=== PATIENT | female | born 1990 | race Caucasian/White ===

== ENCOUNTER 2023-02-17 14:06 | Outpatient (OUT) | payer OTHER, SELFPAY ==
--- NOTE | 2023-02-17 14:16 | US_ITS ---
[address] [address] Patient Name: LIBBY LAY MRN: [id number] date: 1990 Sex: F Assigned Patient Location: US Current Patient Location: Accession/Order Number: [id number] Exam Date: 02/17/2023 14:18 Report Date: 02/17/2023 16:08 At the request of: DLAI STARK Procedure: US OB cervical length EXAMINATION: US OB anatomy, US OB cervical length HISTORY: 20 Weeks Gestation Of Z3A.20 COMPARISON: No relevant comparison available. TECHNIQUE: Transabdominal sonographic examination was performed for obstetrical and evaluation. FINDINGS: Number: 1 Heart Rate: 142.1 bpm H.B. /min Amniotic Fluid Volume: Subjectively normal Placental Location: Cephalic with lower margin 0.3 cm from os. Cervix Length: 4.7 cm, closed. ANATOMY: Normal Structures -cerebellum, choroid plexus, cisterna magna, lateral cerebral ventricles, orbits, midline falx, four-chamber heart, RVOT, LVOT, stomach, kidneys, bladder, umbilical cord insertion into abdomen, three-vessel cord, cervical spine, thoracic spine, lumbar spine, sacral spine, right upper extremity, left upper extremity, right lower extremity, left lower extremity. SUBOPTIMALLY SEEN: Hard palate. ABNORMALITIES: None BIOMETRY: BPD: 5.1 cm 21 weeks 3 days HC: 18.5 cm 20 weeks 6 days AC: 14.8 cm 20 weeks 0 days FL: 3.3 cm 20 weeks 3 days EFW:348.3 grams; FL/AC: 22.6 FL/BPD: 65.6 HC/AC: 1.3 GESTATIONAL AGE: Age by EDC: 20 weeks 1 days JERRY by EDC: 07/06/2023 Age by current US: 20 weeks 5 days JERRY by current US: 07/02/2023 US/US OB cervical length IMPRESSION: 1. Single live intrauterine with growth detailed above. 2. Suboptimal visualization of the hard palate; possible cleft lip. Follow-up recommended. Electronically authenticated by: CHRISTIANO PADILLA Date: 02/17/2023 16:08
--- NOTE | 2023-02-17 14:16 | US_ITS ---
[address] [address] Patient Name: LIBBY LAY MRN: [id number] date: 1990 Sex: F Assigned Patient Location: US Current Patient Location: US Accession/Order Number: [id number] Exam Date: 02/17/2023 14:18 Report Date: 02/17/2023 16:08 At the request of: DALI STARK Procedure: US OB anatomy EXAMINATION: US OB anatomy, US OB cervical length HISTORY: 20 Weeks Gestation Of Z3A.20 COMPARISON: No relevant comparison available. TECHNIQUE: Transabdominal sonographic examination was performed for obstetrical and evaluation. FINDINGS: Number: 1 Heart Rate: 142.1 bpm H.B. /min Amniotic Fluid Volume: Subjectively normal Placental Location: Cephalic with lower margin 0.3 cm from os. Cervix Length: 4.7 cm, closed. ANATOMY: Normal Structures -cerebellum, choroid plexus, cisterna magna, lateral cerebral ventricles, orbits, midline falx, four-chamber heart, RVOT, LVOT, stomach, kidneys, bladder, umbilical cord insertion into abdomen, three-vessel cord, cervical spine, thoracic spine, lumbar spine, sacral spine, right upper extremity, left upper extremity, right lower extremity, left lower extremity. SUBOPTIMALLY SEEN: Hard palate. ABNORMALITIES: None BIOMETRY: BPD: 5.1 cm 21 weeks 3 days HC: 18.5 cm 20 weeks 6 days AC: 14.8 cm 20 weeks 0 days FL: 3.3 cm 20 weeks 3 days EFW:348.3 grams; FL/AC: 22.6 FL/BPD: 65.6 HC/AC: 1.3 GESTATIONAL AGE: Age by EDC: 20 weeks 1 days JERRY by EDC: 07/06/2023 Age by current US: 20 weeks 5 days JERRY by current US: 07/02/2023 US/US OB anatomy IMPRESSION: 1. Single live intrauterine with growth detailed above. 2. Suboptimal visualization of the hard palate; possible cleft lip. Follow-up recommended. Electronically authenticated by: CHRISTIANO PAIDLLA Date: 02/17/2023 16:08
== END 2023-02-17 14:07 | disposition home or self-care (01) ==
LOC: US 14:09
PROVIDERS: PCP Family Medicine; Visit Provider Midwife
DX: Z34.92 Encounter for supervision of normal pregnancy, unspecified, second trimester (principal)
CPT/HCPCS: 76805; 76817

== ENCOUNTER 2023-04-26 07:37 | Outpatient (OUT) | payer OTHER, SELFPAY | END 2023-04-26 07:38 | disposition home or self-care (01) | LOC: LAB 07:37 | PROVIDERS: PCP Family Medicine; Visit Provider Midwife | DX: O26.899 Other specified pregnancy related conditions, unspecified trimester (principal); Z67.91 Unspecified blood type, Rh negative | CPT/HCPCS: 36415; 86850; 86900; 86901 ==

== ENCOUNTER 2023-04-27 07:28 | Outpatient (RCR) | payer OTHER, SELFPAY ==
[2023-04-27] MEDS: RHO(D) IMMUNE GLOBULIN 1,500 UNIT SYRINGE 1500 UNIT IM (13:13)
[2023-04-27 13:56] VITALS: BP 136/81; PULSE 110; RESP 16; TEMP 37
--- NOTE | 2023-04-27 14:11 | PC.NURSE ---
1245: Pt. to [facility] amb. for injection. Seated in recliner. Blood type verified. Relays receiving past injections of Rhogam with no reaction or adverse side effects. Denies questions regarding med. Medicated with Rhophylac IM as ordered. Pt. tolerates with min. c/o discomfort. No bleeding to site. Bandaid applied prophylactically. 1315: Pt. d/c'd amb. to home. No bleeding observed at injection site.
== END 2023-04-28 23:59 | disposition home or self-care (01) ==
LOC: INF 07:28
PROVIDERS: PCP Family Medicine; Visit Provider Midwife
DX: O26.893 Other specified pregnancy related conditions, third trimester (principal); Z67.91 Unspecified blood type, Rh negative
CPT/HCPCS: 96372; J2790

== ENCOUNTER 2023-06-30 05:34 | Inpatient (IN) | payer OTHER, SELFPAY ==
[2023-06-30] VITALS (28 sets, daily range): BP systolic 107–136; BP diastolic 60–98; PULSE 68–95; RESP 10–27; TEMP 35.9–36.8; O2SAT 94–98
--- OUTSIDE RECORDS SUMMARY | 2023-06-30 05:38 | XMS_ITS | CCD ---
Author Name Unknown Address [address] [facility] [id number] [place] [address] Organization [facility] Care Team Providers Care Senior Budget Analyst Name Role Phone Unavailable Primary Care Provider Unavaildonaldo Hernandez MD, Rashida Koehler Primary Care Provider RAHUL CARRIZALES Admitting Unavailable HEDGERAHUL Gonzalez Attending Unavailable RAHUL CARRIZALES Admitting Unavailable RAHUL CARRIZALES Attending Unavailable RASHIDA HERNANDEZ Primary Care Unavailable FLORO, DALI L Attending Unavailable FLORO, DALI L Attending Unavailable FLORO, DALI L Referring Unavailable FLORO, DALI L Attending Unavailable FLORO, DALI L Referring Unavailable FLORO, DALI L Attending Unavailable FLORO, DALI L Attending Unavailable FLORO, DALI L Attending Unavailable FLORO, DALI L Referring Unavailable FLORO, DALI L Attending Unavailable FLORO, DALI L Attending Unavailable FLORO, DALI L Referring Unavailable FLORO, DALI L Referring Unavailable FLORO, DALI L Attending Unavailable FLORO, DALI L Referring Unavailable FLORO, DALI L Referring Unavailable FLORO, DALI L Attending Unavailable Allergies Allergy Classification Reported Allergen(s) Allergy Type Date of Onset Reaction(s) Facility (1 source) Amoxicillin Drug Allergy 11-20-2021 [facility] Medications Current Medications Medication Drug Class(es) Dates Sig (Normalized) Sig (Original) acetaminophen 500 mg oral tablet (1 source) Start: 11-20-2021 acetaminophen (TYLENOL) tablet 1,000 mg calcium chloride 0.0014 meq/ml / potassium chloride 0.004 meq/ml / sodium chloride 0.103 meq/ml / sodium lactate 0.028 meq/ml injectable solution (2 sources) Start: 11-20-2021 End: 11-20-2021 lactated ringers infusion 1 ml carboprost 0.25 mg/ml injection (1 source) Prostaglandin Analog Start: 11-20-2021 carboprost (HEMABATE) injection 250 mcg 1 ml diphenhydrAMINE hydrochloride 50 mg/ml cartridge (1 source) Histamine-1 Receptor Antagonist Start: 11-20-2021 diphenhydrAMINE (BENADRYL) injection 25 mg docusate sodium 100 mg oral capsule (2 sources) Start: 11-23-2021 take 1 capsule by mouth twice daily docusate sodium (COLACE) 100 MG capsule Take 1 capsule by mouth 2 times daily 60 capsule 2 11/23/2021 Active Start: 11-20-2021 docusate sodiu m (COLACE) capsule 100 mg docusate sodium 50 mg / sennosides, group home 8.6 mg oral tablet (1 source) Start: 11-20-2021 sennosides-docusate sodium (SENOKOT-S) 8.6-50 MG tablet 1 tablet 0.4 ml enoxaparin sodium 100 mg/ml prefilled syringe (1 source) Low Molecular Weight Heparin Start: 11-20-2021 enoxaparin (LOVENOX) injection 40 mg ibuprofen 800 mg oral tablet (2 sources) Nonsteroidal Anti-inflammatory Drug Start: 11-23-2021 take 1 tablet by mouth every eight hours ibuprofen (ADVIL;MOTRIN) 800 MG tablet Take 1 tablet by mouth every 8 hours 120 tablet 3 11/23/2021 Active Start: 11-21-2021 ibuprofen (ADV IL;MOTRIN) tablet 800 mg lanolin 1000 mg/ml topical cream (1 source) Start: 11-20-2021 lansinoh lanol in ointment 1 ml methylergonovine maleate 0.2 mg/ml injection (1 source) Ergot Derivative Start: 11-20-2021 methylergonov ine (METHERGINE) injection 200 mcg miSOPROStol 0.1 mg oral tablet (1 source) Prostaglandin E1 Analog Start: 11-20-2021 miSOPROStol (CYTOTEC ) tablet 800 mcg 1 ml nalbuphine hydrochloride 10 mg/ml injection (1 source) Opioid Agonist/Antagonist Start: 11-20-2021 nalbuphine (NUBAIN) injection 10 mg 1 ml naloxone hydrochloride 0.4 mg/ml injection (1 source) Opioid Antagonist Start: 11-20-2021 naloxone (NA RCAN) injection 0.4 mg ondansetron 4 mg disintegrating oral tablet (2 sources) Serotonin-3 Receptor Antagonist Start: 11-22-2021 ondansetron (ZOFRAN-ODT) disintegrating tablet 4 mg Start: 11-20-2021 End: 11-22-2021 ondansetron (ZOFRAN) injecti on 4 mg oxyCODONE hydrochloride 10 mg oral tablet (3 sources) Opioid Agonist Start: 11-23-2021 End: 11-28-2021 take 1 tablet by mouth every six hours as needed for pain oxyCODONE (OXY-IR) 10 MG immediate release tablet Indications: Delivery by section for breech presentation Take 1 tablet by mouth every 6 hours as needed for Pain for up to 5 days. 20 tablet 0 11/23/2021 11/28/2021 Active Start: 11-20-2021 oxyCODONE (HECTOR ICODONE) immediate release tablet 10 mg Start: 11-20-2021 oxyCODONE (HECTOR ICODONE) immediate release tablet 5 mg oxytocin (PITOCIN) 30 units in 500 mL infusion (1 source) Start: 11-20-2021 oxytocin (JEREMIAH MELISSA) 30 units in 500 mL infusion vitamin 27-1 MG tab let 1 tablet (1 source) Start: 11-20-2021 vitam in 27-1 MG tablet 1 tablet simethicone 80 mg chewable tablet (1 source) Start: 11-20-2021 simethicone (M YLICON) chewable tablet 80 mg 5 ml sodium chloride 9 mg/ml injection (3 sources) Start: 11-20-2021 0.9 % sodium c hloride infusion Start: 11-20-2021 sodium chlorid e flush 0.9 % injection 5-40 mL Completed/Discontinued Medications Medication Drug Class(es) Dates Sig (Normalized) Sig (Original) citric acid 66.8 mg/ml / sodium citrate 100 mg/ml oral solution (1 source) Calculi Dissolution Agent, Anti-coagulant Start: 11-20-2021 End: 11-20-2021 citric acid-sodium citrate (BICITRA) solution 30 mL famotidine (PEPCID) 20 mg in sodium chloride (PF) 10 mL injection (1 source) Start: 11-20-2021 End: 11-20-2021 famotidine (PEPCID) 20 mg in sodium chloride (PF) 10 mL injection ferrous gluconate 324 mg oral tablet (1 source) End: 11-20-2021 take 1 tablet by mouth once daily at breakfast ferrous gluconate (FERGON) 324 (38 Fe) MG tablet Take 324 mg by mouth daily (with breakfast) 0 11/20/2021 Discontinued 1 ml ketorolac tromethamine 30 mg/ml cartridge (1 source) Nonsteroidal Anti-inflammatory Drug, Cyclooxygenase Inhibitor Start: 11-20-2021 End: 11-21-2021 ketorolac (TORADOL) injection 30 mg 2 ml metoclopramide 5 mg/ml prefilled syringe (1 source) Dopamine-2 Receptor Antagonist Start: 11-20-2021 End: 11-20-2021 metoclopramide (REGLAN) injection 10 mg oxytocin (PITOCIN) 30 units in 500 mL infusion Override Pull (1 source) Start: 11-20-2021 End: 11-20-2021 oxytocin (PITOCIN) 30 units in 500 mL infusion Override Pull MV-Min-Fe Fum-FA-DHA ( 1 PO) (1 source) End: 11-20-2021 MV-Min-Fe Fum-FA-DHA ( 1 PO) Take 1 tablet by mouth 0 11/20/2021 Discontinued Problems Problem Classification Problem Date Documented Da te Episodic/Chronic Malposition; malpresentation (2 sources) Delivery by section for breech presentation; Translations: [Maternal care for breech presentation, not applicable or unspecified] Onset: 11-20-2021 Episodic Other and delivery including normal (2 sources) Third trimester ; Translations: [Encounter for supervision of normal , unspecified, third trimester] Onset: 11-20-2021 Episodic Unclassified (1 source) No additional problems on file Results Test Name Value Interpretation Reference Range Facility US BIOPHYSICAL PROFILE WO NON STRESS TESTINGon 06-23-2023 US BIOPHYSICAL PROFILE WO NON STRESS TESTING EXAMINATION: BIOPHYSICAL PROFILE CLINICAL HISTORY: COMPARISONS: None available. FINDINGS: Transabdominal ultrasound of the gravid uterus was performed for 30 minutes or less for evaluation of biophysical profile with scoring as follows: 2 out of 2 for breathing 2 out of 2 for movement. 2 out of 2 for tone. 2 out of 2 for amniotic fluid volume. heart rate of 134 beats per minute is documented. Amniotic fluid index calculated at 13.70 cm, 53.6%. IMPRESSION: BIOPHYSICAL PROFILE WITH A SCORE OF 8 OUT OF 8. CLINICAL CORRELATION RECOMMENDED. Normal Not Available US BIOPHYSICAL PROFILE WO NON STRESS TESTINGon 06-20-2023 US BIOPHYSICAL PROFILE WO NON STRESS TESTING This is a summary report. The complete report is available in the patient's medical record. If you cannot access the medical record, please contact the sending organization for a detailed fax or copy. US BIOPHYSICAL PROFILE WO NON STRESS TESTING : 06/20/2023 3:58 PM CLINICAL HISTORY: Abnormal stress COMPARISON: June 16, 2023 Transabdominal ultrasound of the gravid uterus was performed for an ultrasound biophysical profile. FINDINGS: A single live intrauterine is present. heart rate measures 126 bpm. The amniotic fluid index measures 13.59 cm measured in 4 quadrants. Biophysical profile was performed with scoring as follows: 2/2 for breathing. 2/2 for movement. 2/2 for tone. 2/2 for amniotic fluid volume. IMPRESSION: BIOPHYSICAL PROFILE WITH A SCORE OF 8/8. CORRELATION WITH NON-STRESS TEST IS RECOMMENDED. ELECTRONICALLY SIGNED BY: Gray David DO Normal Not Available US OB FOLLOW UP TRANSABDOMIN AL APPROACHon 06-16-2023 US OB FOLLOW UP TRANSABDOMINAL APPROACH HISTORY: Gestational diabetes COMPARISON: 06/09/2023 TECHNIQUE: Sonography of the pelvis was performed by transabdominal technique. Images were obtained and stored in a permanent archive. RESULT: Gestation: Single present. Position: Cephalic Placenta: Location: Posterior/fundal Grade: I Previa: absent Cervix: Closed measuring 3.2 cm in length. Cardiac activity: 141 bpm BPD: 9.2 cm HC: 33.6 cm AC: 33.0 cm FL: 7.3 cm Amniotic fluid: 13.7 cm, 51.6 percentile Estimated weight (EFW): 3235 g (7 pounds 2 ounces), 67th percentile Estimated gestational age: 37 weeks 4 days estimated gestational age by composite. Anatomy: No gross anomalies in the visualized anatomy. IMPRESSION: Single, live intrauterine with estimated 37 weeks 4 days gestational age. ELECTRONICALLY SIGNED BY: Stephon Juarez MD Normal Not Available US OB FOLLOW UP TRANSABDOMIN AL APPROACHon 06-09-2023 OB FOLLOW UP TRANSABDOMINAL APPROACH This is a summary report. The complete report is available in the patient's medical record. If you cannot access the medical record, please contact the sending organization for a detailed fax or copy. OB FOLLOW UP TRANSABDOMINAL APPROACH: 06/09/2023 9:42 AM CLINICAL HISTORY: Ultrasound. Growth only COMPARISON: June 03, 2023 Transabdominal ultrasound of the gravid uterus was performed. FINDINGS: A single live intrauterine is noted in cephalic position. cardiac activity measures approximately 156 beats per minute. The cervix measures approximately 3.63 cm in longitudinal length. A grade 1-appearing placenta is posterior without evidence of an abnormal subplacental collection or previa. The amniotic fluid volume appears within normal limits for gestation. The ANTWON measures 14.45 cm. The following measurements were obtained: BPD 8.96 cm, HC 32.38 cm, AC 32.64 cm, FL 8.96 cm, which corresponds to an aggregate gestational age of 36 weeks 3 days. Estimated weight is 2957 g. This corresponds to 61.8% by LMP. There is no free fluid noted in the maternal pelvis. Neither maternal ovary is identified. IMPRESSION: SINGLE LIVE INTRAUTERINE CORRESPONDING TO APPROXIMATELY 36 WEEKS 3 DAYS WITH THAT EXPECTED DUE DATE OF JULY 04, 2023. NO GROSS ABNORMALITIES IDENTIFIED, WITHIN THE LIMITS OF THE STUDY. ELECTRONICALLY SIGNED BY: Gray David, DO Normal Not Available OB FOLLOW UP TRANSABDOMIN AL APPROACHon 06-03-2023 OB FOLLOW UP TRANSABDOMINAL APPROACH This is a summary report. The complete report is available in the patient's medical record. If you cannot access the medical record, please contact the sending organization for a detailed fax or copy. OB FOLLOW UP TRANSABDOMINAL APPROACH: 06/03/2023 2:35 PM CLINICAL HISTORY: Ultrasound. COMPARISON: May 19, 2023 Transabdominal ultrasound of the gravid uterus was performed. FINDINGS: A single live intrauterine is noted in cephalic position. cardiac activity measures approximately 158 beats per minute. The cervix measures approximately 4.39 cm cm in longitudinal length. A grade 1-appearing placenta is posterior without evidence of an abnormal subplacental collection or previa. The amniotic fluid volume appears within normal limits for gestation. The ANTWON measures 13.21 cm The following measurements were obtained: BPD 8.75 cm, HC 31.54 cm, AC 31.49 cm, FL 6.88 cm, which corresponds to an aggregate gestational age of 35 weeks 3 days. Estimated weight is 2664 g which places this fetus in the 50.8 percentile. There is no free fluid noted in the maternal pelvis. Neither maternal ovary is identified. IMPRESSION: SINGLE LIVE INTRAUTERINE CORRESPONDING TO APPROXIMATELY 35 WEEKS 3 DAYS WITH AN EXPECTED DUE DATE OF JULY 05, 2023.. NO GROSS ABNORMALITIES IDENTIFIED, WITHIN THE LIMITS OF THE STUDY. ELECTRONICALLY SIGNED BY: Gray David DO Normal Not Available US OB FOLLOW UP TRANSABDOMIN AL APPROACHon 05-19-2023 US OB FOLLOW UP TRANSABDOMINAL APPROACH This is a summary report. The complete report is available in the patient's medical record. If you cannot access the medical record, please contact the sending organization for a detailed fax or copy. US OB FOLLOW UP TRANSABDOMINAL APPROACH: 05/19/2023 9:31 AM CLINICAL HISTORY: Ultrasound. COMPARISON: April 27, 2023 Transabdominal ultrasound of the gravid uterus was performed. FINDINGS: A single live intrauterine is noted in cephalic position. cardiac activity measures approximately 158 beats per minute. The cervix measures approximately 3.2 t cm in longitudinal length. The placenta is posterior without evidence of an abnormal subplacental collection or previa. The amniotic fluid volume appears within normal limits for gestation. It measures 15.09 cm. The following measurements were obtained: BPD 8.31 cm, HC 30.21 cm, AC 29.44 cm, FL 6.42 cm, which corresponds to an aggregate gestational age of 33 weeks 3 days. Estimated weight is 2177 g. This [address] this fetus in the 47.6 percentile.. There is no free fluid noted in the maternal pelvis. Neither maternal ovary is identified. IMPRESSION: SINGLE LIVE INTRAUTERINE CORRESPONDING TO APPROXIMATELY 33 WEEKS 3 DAYS WITH AN EXPECTED DUE DATE OF JULY 04, 2023. NO GROSS ABNORMALITIES IDENTIFIED, WITHIN THE LIMITS OF THE STUDY. ELECTRONICALLY SIGNED BY: Gray David DO Normal Not Available US OB FOLLOW UP TRANSABDOMIN AL APPROACHon 04-27-2023 US OB FOLLOW UP TRANSABDOMINAL APPROACH FINDINGS: Single live intrauterine . heart rate 141 bpm. somatic activity identified. Cephalic position. Grade 0 posterior placenta. ANTWON 13.22 cm. Cervical length not visualized. Estimated sonographic gestational age 30 weeks, 0 days. Gestational age by dates, 30 weeks, 0 days. Estimated sonographic date of delivery July 06, 2023. Estimated weight 1503 g (39.4%, by LMP percentile. BPD 7.73 cm. HC 27.61 cm. FL 5.71 cm. AC 25.81 cm. IMPRESSION: Impression: Single live intrauterine with estimated sonographic gestational age 30 weeks, 0 days. Estimated weight 1503 g. ELECTRONICALLY SIGNED BY: Yan Noel MD Normal Not Available Hemoglobinon 11-21-2021 Hemoglobin (Bld) [Mass/Vol] 10.8 g/dL Low 11.9-15.[address] [facility] Comment on above: Performed By: #### H GB #### [facility] [address] [place] [address] Talent Engineer: Juan Luis Cherry MD Hemoglobin (Bld) [Mass/Vol] 10.8 g/dL Low 11.9 - 15.1 g/dL [facility] Interpretation and review of laboratory results Abnormal [facility] DRUG SCREEN MULTI URINEon Amphetamine Screen, Ur Negative NEGATIVE [facility] Barbiturate Screen, Ur Negative NEGATIVE [facility] Benzodiazepine Screen, Urine Negative NEGATIVE [facility] Buprenorphine Urine Negative NEGATIVE [facility] Cannabinoid Scrn, Ur Negative NEGATIVE [facility] Cocaine Metabolite, Urine Negative NEGATIVE [facility] Methadone Screen, Urine Negative NEGATIVE [facility] Methamphetamine, Urine Negative NEGATIVE [facility] Opiates, Urine Negative NEGATIVE [facility] Oxycodone Screen, Ur Negative NEGATIVE [facility] Phencyclidine, Urine Negative NEGATIVE [facility] Propoxyphene, Urine Negative NEGATIVE [facility] Tricyclic Antidepressants, Urine Negative NEGATIVE [facility] Comment on above: Drug screen results are to be used for medical purposes only. All positive results are unconfirmed. Testing for employment or legal uses should be sent to a reference laboratory for confirmation. [facility] Drug Scr, Abuse, Uron 2021 Amphetamine(s),Ur Negative Normal NEG [facility] Comment on above: Performed By: #### D AU #### [facility] [address] [place], [place] [id number] Talent Engineer: Juan Luis Cherry MD Barbiturate(s),Ur Negative Normal NEG [facility] Comment on above: Performed By: #### D AU #### [facility] [address] [place], [place] [id number] Talent Engineer: Juan Luis Cherry MD Benzodiazepine(s) Negative Normal NEG [facility] Comment on above: Performed By: #### D AU #### [facility] [address] [place], [place] [id number] Talent Engineer: Juan Luis Cherry MD Buprenorphrine, Ur Negative Normal [facility] Comment on above: Performed By: #### D AU #### [facility] [address] [place], [place] [id number] Talent Engineer: Juan Luis Cherry MD Cannabinoid(s),Ur Negative Normal NEG [facility] Comment on above: Performed By: #### D AU #### [address] [place], [place] [id number] Talent Engineer: Juan Luis Cherry MD Cocaine Metabolite Negative Normal [facility] Comment on above: Performed By: #### D AU #### [facility] [address] [place], [place] [id number] Talent Engineer: Juan Luis Cherry MD Methadone Ql (U) Negative Normal NEG [facility] Comment on above: Performed By: #### D AU #### [facility] [address] [place], [place] [id number] Talent Engineer: Juan Luis Cherry MD Methamphetamine, Ur Negative Normal [facility] Comment on above: Performed By: #### D AU #### [facility] [address] [place] [address] Talent Engineer: Juan Luis Cherry MD Opiate(s), Ur Negative Normal NEG [facility] Comment on above: Performed By: #### D AU #### [facility] [address] [place] [address] [place] [address] Talent Engineer: Juan Luis Cherry MD Oxycodone, Urine Negative Normal NEG [facility] Comment on above: Performed By: #### D AU #### [facility] [address] [place] [address] [place] [address] Talent Engineer: Juan Luis Cherry MD Phencyclidine, Ur Negative Normal NEG [facility] Comment on above: Performed By: #### D AU #### [address] [place], [place] [id number] Talent Engineer: Juan Luis Cherry MD Propoxyphene,Urine Negative Normal NEG [facility] Comment on above: Performed By: #### D AU #### [facility] [address] [place] [address] [place] [address] Talent Engineer: Juan Luis Cherry MD Tricyclic antidepressants Screen Ql (U) Negative Normal NEG [facility] Comment on above: Result Comment: Drug screen results are to be used for medical purposes only. All positive results are unconfirmed. Testing for employment or legal uses should be sent to a reference laboratory for confirmation. Performed By: #### D AU #### [address] [place], [facility] Talent Engineer: Juan Luis Cherry MD OPERATIVE REPORTon OPERATIVE REPORT [address] [address] OPERATIVE REPORT PATIENT NAME: ALEXIS LAY : 1990 MED REC NO: [id number] ROOM: [facility] ACCOUNT NO: [id number] ADMIT DATE: 11/20/2021 PROVIDER: Rahul Carrizales MD DATE OF PROCEDURE: 11/20/2021 PREOPERATIVE DIAGNOSES: at term, breech presentation. POSTOPERATIVE DIAGNOSES: at term, breech presentation, rosamaria breech presentation confirmed. PROCEDURE PERFORMED: Primary section, low-transverse uterine segment. SURGEON: Rahul Carrizales M.D. ANESTHESIA: Spinal. PRODUCTION ASSISTANT: Dali Baez. ESTIMATED BLOOD LOSS: 600 mL. COMPLICATIONS OF THE PROCEDURE: None. FINDINGS: A viable vigorous female in rosamaria breech presentation with clear amniotic fluid. Of note, had a discussion with the patient regarding the surgery and answered questions. Also confirmed the baby was in breech presentation with real time ultrasound at bedside. DESCRIPTION OF PROCEDURE: The patient was taken to the operating room. Spinal anesthesia was administered. Prepping was performed and Reed catheter placed. Pneumatic stockings placed and the abdomen was sterilely prepped and draped. Scalpel was used to make a transverse incision over the lower abdomen. Cautery was used to divide the subcutaneous tissue and coagulating small bleeding vessels and then the fascia was also divided with the Bovie cautery and then mobilized away from the underlying rectus muscles both superiorly and inferiorly. Rectus muscles were then bluntly and sharply divided in the midline. Peritoneum bluntly entered and then this was extended laterally giving excellent visualization of the lower uterine segment. Uterine peritoneum was elevated and incised, creating a bladder flap by mobilizing this inferiorly. Scalpel was then used to make a transverse incision over the lower uterine segment. This was extended in a semilunar fashion with flexo operator's fingers and clear amniotic fluid was noted. Chef De Cuisine's hand inserted into the uterus. The breech was carefully brought out of the incision. Gentle steady traction was placed over the hips until delivery of both legs were performed. Then, this with gentle steady traction continued to the level of the shoulders. Arms were carefully manipulated to be delivered and then mild fundal pressure was given, which easily then delivered the head. Cord was allowed to pulse. Cord was then clamped and cut. Cord blood specimen obtained. Placenta manually extracted from the uterus. Uterus was then cleaned of blood clots and membranes. Uterus was brought out of the incision and held on the abdomen. The uterus closed with #1 chromic in a running interlocking fashion and then a second layer running imbricating interlocking fashion. Excellent hemostasis was noted after a small amount of cautery on the edges of the peritoneum. The posterior cul-de-sac was cleaned of blood clots and fluid. Uterus carefully replaced back into the abdomen. Anterior cul-de-sac and paracolic gutters were thoroughly visualized and cleaned and noted to have excellent hemostasis. The fascia was then closed with 0 PDS in a running non-interlocking fashion. The subcutaneous tissue was thoroughly irrigated. This was closed and then the skin closed in a subcuticular fashion by Dali Baez. All sponge, needle, and instrument counts were noted to be correct. RAHUL CARRIZALES MD [id number] Doc#: [id number] CC: Normal [facility] CBC with Auto Differentialon 11-19-2021 Absolute Eos # 0.07 [facility] Absolute Immature Granulocyte 0.16 [facility] Absolute Lymph # 1.12 [facility] Absolute Sutton # 0.47 [facility] Basophils (Bld) [#/Vol] 10*3/uL [facility] Basophils/100 WBC (Bld) 0 % 0 - 2 % [facility] Eosinophils/100 WBC (Bld) 1 % 1 - 4 % [facility] Hematocrit (Bld) [Volume fraction] 33.7 % Low 36.3 - 47.1 % [facility] Hemoglobin (Bld) [Mass/Vol] 11.8 g/dL Low 11.9 - 15.1 g/dL [facility] Immature granulocytes/100 WBC (Bld) 2 % High 0 [facility] Interpretation and review of laboratory results Abnormal [facility] Lymphocytes/100 WBC (Bld) 12 % Low 24 - 43 % [facility] MCH (RBC) [Entitic mass] 33.0 pg 25.2 - 33.5 pg [facility] MCHC (RBC) [Mass/Vol] 35.0 g/dL High 28.4 - 34.8 g/dL [facility] MCV (RBC) [Entitic vol] 94.1 fL 82.6 - 102.9 fL [facility] Monocytes/100 WBC (Bld) 5 % 3 - 12 % [facility] NRBC Automated 0.0 0.0 per 100 WBC [facility] Platelet distribution width (Bld) [Ratio] 13.0 % 11.8 - 14.4 % [facility] Platelets (Bld) [#/Vol] See Reflexed IPF Result [facility] RBC (Bld) [#/Vol] 3.58 10*6/uL Low 3.95 - 5.1 1 m/uL [facility] Segmented neutrophils/100 WBC (Bld) 80 % High 36 - 65 % [facility] Segs Absolute 7.26 [facility] WBC (Bld) [#/Vol] 9.1 10*3/uL [facility] CBC with Diffon 11-19-2021 Abs. Basophil <0.03 Normal 0.00-0.20 [facility] Comment on above: Performed By: #### C DP, IPF #### [facility] [address] [place] [address] Dr. [place], [facility] Talent Engineer: Juan Luis Cherry MD Abs.Imm.Granulocyte 0.16 k/uL Normal 0.00-0.[address] [facility] Comment on above: Performed By: #### C DP, IPF #### [address] [place] [id number] Talent Engineer: Juan Luis Cherry MD Abs.Neutrophil (Seg) 7.26 k/uL Normal 1.50-8.10 [facility] Comment on above: Performed By: #### C DP, IPF #### [address] [place] [address] Talent Engineer: Juan Luis Cherry MD Basophils/100 WBC (Bld) 0 % Normal 0-[address] [facility] Comment on above: Performed By: #### C DP, IPF #### [address] [place] [id number] Talent Engineer: Juan Luis Cherry MD Eosinophils (Bld) [#/Vol] 0.07 10*3/uL Normal 0.00-0.[address] [facility] Comment on above: Performed By: #### C DP, IPF #### [facility] [address] [place] [address] [place] [address] Talent Engineer: Juan Luis Cherry MD Eosinophils/100 WBC (Bld) 1 % Normal 1-[address] [facility] Comment on above: Performed By: #### C DP, IPF #### [facility] [address] [place], [place] [id number] Talent Engineer: Juan Luis Cherry MD Erythrocyte distribution width (RBC) [Ratio] 13.0 % Normal 11.8-14.[address] [facility] Comment on above: Performed By: #### C DP, IPF #### [address] [place] [address] Talent Engineer: Juan Luis Cherry MD Hematocrit (Bld) [Volume fraction] 33.7 % Low 36.3-47.[address] [facility] Comment on above: Performed By: #### C DP, IPF #### [address] [place], [place] [id number] Talent Engineer: Juan Luis Cherry MD Hemoglobin (Bld) [Mass/Vol] 11.8 g/dL Low 11.9-15.[address] [facility] Comment on above: Performed By: #### C DP, IPF #### [address] [place], [place] [id number] Talent Engineer: Juan Luis Cherry MD Immature granulocytes/100 WBC (Bld) 2 % High [address] [facility] Comment on above: Performed By: #### C DP, IPF #### [address] [place] [address] Talent Engineer: Juan Luis Cherry MD Lymphocytes (Bld) [#/Vol] 1.12 10*3/uL Normal 1.10-3.[address] [facility] Comment on above: Performed By: #### C DP, IPF #### [facility] [address] [place], [place] [id number] Talent Engineer: Juan Luis Cherry MD Lymphocytes/100 WBC (Bld) 12 % Low 24-[address] [facility] Comment on above: Performed By: #### C DP, IPF #### [facility] [address] [place], [facility]83 Talent Engineer: Juan Luis Cherry MD MCH (RBC) [Entitic mass] 33.0 pg Normal 25.2-33.[address] [facility] Comment on above: Performed By: #### C DP, IPF #### [address] [place], [place] [id number] Talent Engineer: Juan Luis Cherry MD MCHC (RBC) [Mass/Vol] 35.0 g/dL High 28.4-34.8 [facility] Comment on above: Performed By: #### C DP, IPF #### [address] Jorge, [facility]83 Talent Engineer: Juan Luis Cherry MD MCV (RBC) [Entitic vol] 94.1 fL Normal 82.6-102.[address] [facility] Comment on above: Performed By: #### C DP, IPF #### [address] [place], [place] 1133483 Talent Engineer: Juan Luis Cherry MD Monocytes (Bld) [#/Vol] 0.47 10*3/uL Normal 0.10-1.[address] [facility] Comment on above: Performed By: #### C DP, IPF #### [facility] [address] [place] [address] Talent Engineer: Juan Luis Cherry MD Monocytes/100 WBC (Bld) 5 % Normal 3-[address] [facility] Comment on above: Performed By: #### C DP, IPF #### [facility] [address] [place] [address] Talent Engineer: Juan Luis Cherry MD Neutrophil (Seg) 80 % High 36-65 [facility] Comment on above: Performed By: #### C DP, IPF #### [facility] [address] [place], [place] [id number] Talent Engineer: Juan Luis Cherry MD NRBC Automated 0.0 per 100 WBC Normal 0.[address] [facility] Comment on above: Performed By: #### C DP, IPF #### [facility] [address] [place], [place] [id number] Talent Engineer: Juan Luis Cherry MD Platelet Count See Reflexed IPF Result Normal 138-[address] [facility] Comment on above: Performed By: #### C DP, IPF #### [address] [place] [address] Talent Engineer: Juan Luis Cherry MD RBC (Bld) [#/Vol] 3.58 10*6/uL Low 3.95-5.[address] [facility] Comment on above: Performed By: #### C DP, IPF #### [facility] [address] [place] [address] Dr. [place], [place] [id number] Talent Engineer: Juan Luis Cherry MD WBC (Bld) [#/Vol] 9.1 10*3/uL Normal 3.5-11.[address] [facility] Comment on above: Performed By: #### C DP, IPF #### [facility] [address] [place], [place] [id number] Talent Engineer: Juan Luis Cherry MD Immature Platelet Fractionon 11-19-2021 Interpretation and review of laboratory results Abnormal [facility] Platelet, Fluorescence 147 [facility] Platelet, Immature Fraction 10.7 % High 1.1 - 10.3 % [facility] PLT, Immature Fract.on 11-19 Platelet, Fluoresc. 147 k/uL Normal 138-[address] [facility] Comment on above: Performed By: #### C DP, IPF #### [facility] [address] [place] [address] Talent Engineer: Juan Luis Cherry MD PLT, Immature Fract. 10.7 % High 1.1-10.3 [facility] Comment on above: Performed By: #### C DP, IPF #### [facility] [address] [place] [address] Talent Engineer: Juan Luis Cherry MD Type + Screenon 11-19-2021 Type + Screen Sample Expiration 11/22/2021,2359 Arm Band Number [id number] ABO/Rh(D) A NEGATIVE Antibody Screen POSITIVE Antibody Ident Anti-D, Passive Due To RhIG Normal [facility] Comment on above: Performed By: #### T YS #### [facility] [address] [place] [address] Talent Engineer: Juan Luis Cherry MD GBS, External Resulton 11-01 GBS, External Result Negative [facility] Work Phone: [facility] [employer] Phone: Q - STREP B WITH SUSCEPTon 0 10-27-2021 CULTURE, GROUP B STREP WITH SUSCEPTIBILITY SEE NOTE Normal [facility] Comment on above: Order Comment: [facility] performed at: Q[facility], [facility], [address] [place] [address], [address] [place] [address], [id number], Curer Acid Drum: Bryce Bird MD [facility] Collection Date/Time: [facility] Results Received Date/Time: [facility] Reported Date/Time: Result Comment: CULT URE, GROUP B STREP WITH SUSCEPTIBILITY Micro Number: [id number] Test Status: Final Specimen Source: Vaginal/rectal Specimen Quality: Adequate Result: No group B Streptococcus isolated Note per CDC guidelines optimal recovery is achieved by swabbing both the lower vagina and rectum (through the anal sphincter). Performed By: #### 1 [id number] #### [facility] Default [address] [place] [address] Complete Blood Counton 09-02 Erythrocyte distribution width (RBC) [Ratio] 12.6 % Normal 11.0-15.0 [facility] Comment on above: Performed By: #### G GLU, CBC #### [facility] [address] [place], [place] [id number] Hematocrit (Bld) [Volume fraction] 32.5 % Low 35.0-47.0 [facility] Comment on above: Performed By: #### G GLU, CBC #### [facility] [address] [place], [place] [id number] Hemoglobin (Bld) [Mass/Vol] 10.8 g/dL Low 11.6-15.5 [facility] Comment on above: Performed By: #### G GLU, CBC #### [facility] [address] [place], [place] [id number] MCH (RBC) [Entitic mass] 31.5 pg Normal 27.0-33.0 [facility] Comment on above: Performed By: #### G GLU, CBC #### [facility] [address] [place], [place] [id number] MCHC (RBC) [Mass/Vol] 33.2 g/dL Normal 32.0-36.0 [facility] Comment on above: Performed By: #### G GLU, CBC #### [facility] [address] [place], [place] [id number] MCV (RBC) [Entitic vol] 95 fL Normal 80-100 [facility] Comment on above: Performed By: #### G GLU, CBC #### [facility] [address] [place], [place] [id number] Platelet mean volume (Bld) [Entitic vol] 11.30 fL Normal 7.50-12.50 [facility] Comment on above: Performed By: #### G GLU, CBC #### [facility] [address] [place], [place] [id number] Platelets (Bld) [#/Vol] 146 10*3/uL Normal 140-400 [facility] Comment on above: Performed By: #### G GLU, CBC #### [facility] [address] [place], [place] [id number] RBC (Bld) [#/Vol] 3.43 10*6/uL Low 3.90-5.20 [facility] Comment on above: Performed By: #### G GLU, CBC #### [facility] [address] [place], [place] [id number] RDW-SD 43.9 fL Normal 37.0-50.0 [facility] Comment on above: Performed By: #### G GLU, CBC #### [facility] [address] [place], [place] [id number] WBC (Bld) [#/Vol] 7.3 10*3/uL Normal 3.8-11.0 [facility] Comment on above: Performed By: #### G GLU, CBC #### [facility] [address] [place], [place] [id number] Glucose - Gestational Screen on 09-02-2021 Glucose [Mass/Vol] 106 mg/dL Normal <135 [facility] Comment on above: Result Comment: A va lue of 135 mg/dL or greater indicates the need for a full glucose tolerance test performed in the fasting state to determine if the patient has gestational diabetes. Performed By: #### G GLU, CBC #### [facility] [address] [place], [place] [id number] US OB 2nd/3rd Trimesteron OB 2nd/3rd Trimester HISTORY: FINDINGS: Comparison made with prior examination of April 14, 2021, delivery at that time was November 18, 2021. A single, live intrauterine is present with normal cardiac rate of 151 beats per minute. Normal activity and amniotic fluid volume. Amniotic fluid index is 11.0 cm. Morphology is remarkable for a 10 mm choroid plexus cyst with non-dilated, symmetrical ventricles. The cervix is long and closed, 3.7 cm. The placenta is posterior low lying , not associated with the cervical os. The current sonographic age is 20 weeks and 3 days, based on the following measurements: BPD 4.6 cm (19 weeks, 5 days) Head Circumference 18.4 cm (20 weeks,5 days) Abdominal Circumference 14.6 cm (19 weeks, 6 days) Femur Length 3.5cm ( 21 weeks, 1 days) Presentation Cephalic Placenta Posterior low lying Weight by percentile 39.0% These measurements result in an estimated date of delivery of November 21, 2021. The current estimated weight is 356 grams +/- grams ( pound, 13 ounces). IMPRESSION: 1. Single, live intrauterine , current sonographic age of 20 weeks and 3 days, with an estimated date of delivery of November 21, 2021. 2. Choroid plexus 10 mm cyst, no additional anatomic abnormalities. 3. Minimal septated uterine morphology near the fundus. Report reported and signed by Zana Mcdonough on 07/07/2021 1025 Normal [facility] ABO, External Resulton 04-14 ABO, External Result A [employer] [facility] Phone: C. Trachomatis, External Res [facility] 04-14-2021 C. Trachomatis, External Result Negative [employer] [facility] Phone: HIV, External ResultOrdered By: Pamela Martinez on 04-14-2021 HIV, External Result Non-Reactive [facility] [employer] Verified with Ashlyn Baez CNM [employer] Hepatitis B, External Result on 04-14-2021 Hep B, External Result NR [facility] Phone: N. Gonorrhoeae, External Res [facility] 04-14-2021 N. Gonorrhoeae, External Result Negative [facility] [facility] Phone: No Panel Informationon 04-14 [facility] Phone: [facility] Phone: RPR, External Labon 04-14-20 21 RPR, External Result NR [facility] Phone: Rh Factor, External Resulton 04-14-2021 Rh Factor, External Result Negative [facility] Phone: Rubella Titer, External Resu lton 04-14-2021 Rubella Titer, External Result Non- Immune [employer] [facility] Phone: Vital Signs Date Time Vital Sign Value Performing Clinician Joii litjoanna 11-22-2021 07:22-0400 Body temperature 97.5 [degF] Rahul Carrizales MD Work Phone: [employer] 11-22-2021 07:22-0400 Diastolic blood pressure 79 mm[Hg] Rahul Carrizales MD Work Phone: [employer] 11-22-2021 07:22-0400 Heart rate 92 /min Rahul Carrizales MD Work Phone: [employer] 11-22-2021 07:22-0400 Respiratory rate 18 /min Rahul Carrizales MD Work Phone: [facility] [employer] 11-22-2021 07:22-0400 Systolic blood pressure 139 mm[Hg] Rahul Carrizales MD Work Phone: [employer] 11-20-2021 11:08-0400 SaO2% (BldA) [Mass fraction] 98 % Rahul Carrizales MD Work Phone: [employer] 11-20-2021 06:02-0400 Body height 170.2 cm Rahul Carrizales MD Work Phone: [facility] [employer] 11-20-2021 06:02-0400 Body mass index (BMI) [Ratio] 30.87 kg/m2 Rahul Carrizales MD Work Phone: [employer] 11-20-2021 06:02-0400 Body weight 89.4 kg Rahul Carrizales MD Work Phone: [employer] Encounters Encounter Date Encounter Type Care Provider Facility Start: 06-27-2023 ambulatory DALI L FLORO Not Jordyn ilable Start: 06-23-2023 End: 06-24-2023 ambulatory DALI L FLORO Not Available Start: 06-20-2023 End: 06-21-2023 ambulatory DALI L FLORO Not Available Start: 06-20-2023 End: 06-21-2023 ambulatory DALI L FLORO Not Available Start: 06-16-2023 End: 06-17-2023 ambulatory DALI L FLORO Not Available Start: 06-13-2023 End: 06-14-2023 ambulatory DALI L FLORO Not Available Start: 06-09-2023 End: 06-10-2023 ambulatory DALI L FLORO Not Available Start: 06-06-2023 End: 06-07-2023 ambulatory DALI L FLORO Not Available Start: 06-03-2023 End: 06-04-2023 ambulatory DALI L FLORO Not Available Start: 05-31-2023 End: 06-01-2023 ambulatory DALI L FLORO Not Available Start: 05-25-2023 End: 05-26-2023 ambulatory DALI L FLORO Not Available Start: 05-19-2023 End: 05-20-2023 ambulatory DALI L FLORO Not Available Start: 05-16-2023 End: 05-17-2023 ambulatory DALI L FLORO Not Available Start: 05-11-2023 End: 05-12-2023 ambulatory DALI L FLORO Not Available Start: 04-27-2023 End: 04-28-2023 ambulatory DALI L FLORO Not Available Start: 04-20-2023 End: 04-21-2023 ambulatory DALI L FLORO Not Available Start: 11-20-2021 End: 11-22-2021 Evaluation and [facility] Start: 11-20-2021 End: 11-22-2021 Evaluation and management of inpatient Rahul Carrizales MD [facility] Phone: [facility] Comment on above: Delivery by section for breech presentation (Primary Dx) Start: 11-19-2021 End: 11-19-2021 [facility]ulatory [facility] Start: 11-19-2021 End: 11-19-2021 Subsequent hospital visit by physician Rahul Carrizales MD Work Phone: [facility] Labor and Delivery Procedures Date Procedure Procedure Detail Performing Clinician Start: 11-21-2021 Blood count hemoglobin Dali Floro PUNCHER - CNM Work Phone: Start: 11-20-2021 End: 11-20-2021 delivery only Rahul Dominguez Work Phone: Start: 11-20-2021 Drug tst prsmv instr mnt chem analyzers pr date Rahul Carrizales MD Work Phone: Start: 11-19-2021 Blood count complete auto&auto difrntl wbc Rahul Carrizales MD Work Phone: Start: 11-19-2021 IMMATURE PLATELET FRACTION Rahul Carrizales MD Work Phone: Start: 11-01-2021 GBS, EXTERNAL RESULT Hi [facility] Start: 04-14-2021 ABO, EXTERNAL RESULT Hi storical Provider Start: 04-14-2021 C. TRACHOMATIS, EXTE RNAL RESULT Historical Provider Start: 04-14-2021 HEPATITIS B, EXTERNA L RESULT Historical Provider Start: 04-14-2021 HIV, EXTERNAL RESULT Hi storical Provider Start: 04-14-2021 N. GONORRHOEAE, EXTE RNAL RESULT Historical Provider Start: 04-14-2021 RH FACTOR, EXTERNAL RESULT Historical Provider Start: 04-14-2021 RPR, EXTERNAL RESULT Hi storical Provider Start: 04-14-2021 RUBELLA TITER, EXTER NAL RESULT Historical Provider Plan of Treatment Date Care Activity Detail Author Start: 01-28-2022 Influenza vaccination Flu vacc ine (Season Ended) [facility] Start: 11-20-2021 End: 11-20-2021 Admission to same day surgery center 11/20/2021 Surgery Obstetrics and Gynecology Rahul Carrizales MD [address] [place] [address] SECTION [facility] Labor [facility] Delivery Comment on above: SECTION Start: 11-20-2021 End: 11-20-2021 delivery only SECTION Breech presentation, single or unspecified fetus 11/20/2021 7:30 AM EDT [facility] Start: 11-20-2021 Subsequent hospital visit by physician 11/20/2021 Hospital Encounter Obstetrics and Gynecology Rahul Carrizales MD [address] [place] [address] [facility] Start: 2021 Screening for malign ant neoplasm of cervix [facility] Start: 01-30-2012 Screening for malign ant neoplasm of cervix Pap smear [facility] Start: 2010 DTaP/Tdap/Td vaccine (1 - Tdap) DTaP/Tdap/Td vaccine (1 - Tdap) [facility] Start: 2009 Hepatitis C screening Hepatitis C sc reen [facility] Start: 2006 HIV screening HIV screen [employer] Start: 2003 Depression Screen Depression Screen [facility] Start: 01-30-1996 COVID-19 Vaccine (1) COVID-19 Vaccin e (1) [facility] Start: 01-30-1992 Varicella vaccine (1 of 2 - 2-dose childhood series) Varicella vaccine (1 of 2 - 2-dose childhood series) [facility] Oxygen therapy [[facility] Data Set] Initiate Oxygen Therapy Protocol Respiratory Care Routine As Needed until discontinued starting 11/20/2021 [employer] Phone: Comment on above: As Needed until disc ontinued starting 11/20/2021 End: 11-20-2021 RHOGAM RHOGAM Blood Bank Routine One Time for 1 Occurrences starting 11/20/2021 until 11/20/2021 [facility] [facility] Phone: Comment on above: One Time for 1 Occur rences starting 11/20/2021 until 11/20/2021 Spirometry panel Incentive myles metry Respiratory Care Routine Every 2hr while awake until discontinued starting 11/20/2021 [employer] [facility] Phone: Comment on above: Every 2hr while awak e until discontinued starting 11/20/2021 End: 11-19-2021 TYPE AND SCREEN [employer] [facility] Phone: Comment on above: One Time for 1 Occur rences starting 11/19/2021 until 11/19/2021 Immunizations Immunization Date Immunization Notes Care Provider Fa [facility] 11-20-2021 diphtheria, tetanus toxoids and acellular pertussis vaccine, unspecified formulation Rahul Carrizales MD Work Phone: [facility] Work Phone: 11-20-2021 measles, mumps and rubella virus vaccine Rahul Carrizales MD Work Phone: [facility] Work Phone: Payers Date Payer Category Payer Unknown [id number] 2021 Unknown [id number] 1991 Unknown [id number] 2.16.8 [id number] 1991 Unknown [id number] 2.16.84 0.1.471936.3.579.2.9 1991 Unknown [id number] 2.16.84 0.1.567810.3.579.2.1259 1991 Unknown [id number] 2.16.84 0.1.237975.3.579.2.9 1991 Unknown [id number] 2.16.84 0.1.693101.3.579.2.1259 1991 Unknown [id number] 2.16.84 0.1.576979.3.579.2.1259 1991 Unknown [id number] 2.16.84 0.1.748673.3.579.2.1259 1991 Unknown [id number] 2.16.84 0.1.332808.3.579.2.9 1991 Unknown [id number] 2.16.84 0.1.133422.3.579.2.9 1991 Unknown [id number] 2.16.84 0.1.800690.3.579.2.9 1991 Unknown [id number] 2.16.840 .1.765456.3.579.2.9 1991 Unknown [id number] 2.16.840 .1.626435.3.579.2.9 1991 Unknown [id number] 2.16.840 .1.809371.3.579.2.9 1991 Unknown [id number] 2.16.840 .1.493444.3.579.2.9 1991 Unknown [id number] 2.16.840 .1.329483.3.579.2.9 1991 Unknown [id number] 2.16.840 .1.376672.3.579.2.9 1991 Unknown [id number] 2.16.840 .1.055715.3.579.2.9 1991 Unknown [id number] 2.16.840 .1.386912.3.579.2.9 Social History Date Type Detail Facility Tobacco smoking stat [facility] Tobacco smoking consumption unknown [facility] [facility] Phone: Start: 1991 Sex Assigned At Not on file B ON [employer] Phone: Start: 11-20-2021 Tobacco smoking stat [facility] Never smoked tobacco [facility] Phone: Start: 11-20-2021 Tobacco use and exposure Smokeless tobacco non-user [facility] Phone: Start: 11-20-2021 Alcohol intake Ex-drinker (finding) [facility] Phone: Start: 11-20-2021 History SDOH Alcohol Frequency 1 [facility] [facility] Phone: History of Present illness Narrative 11-23-2021 Nohemy Ch RN - 11/23/2021 11:47 AM Bella Ch RN - 11/23/2021 11:35 AM EDTLeelarosa TARIK Baez - RAGHAVENDRAM - 11/23/2021 9:35 AM Oumar Cotter RN - 11/22/2021 1:00 PM EDT Note Date & Type Note Facility 11-23-2021 History of Present illness Narrative Patient discharged home from unit accompanied by spouse with understanding of follow up care. Infant in carrier car seat. Pt escorted to vehicle by Sumanth Grajeda. No signs of distress noted. Discharge instructions reviewed with patient. Patient verbalized understanding and denies any questions. Discharge papers signed and then given to patient. Band check completed. C/S Labor and Delivery Post Progress Note SUBJECTIVE: Sitting in her chair bonding with baby. States she is ready to go home Flatus:Present BM:no Diet: Tolerating regular diet Ambulation: Ambulateswithout difficulty OBJECTIVE: Vitals: BP 130/77 Pulse 96 Temp 98 F (36.7 C) (Oral) Resp 16 Ht 5' 7 (1.702 m) Wt 197 lb 1.6 oz (89.4 kg) LMP 02/13/2021 SpO2 98% Unknown BMI 30.87 kg/m Patient Vitals for the past 24 hrs: BP Temp Temp src Pulse Resp 11/23/21 0727 130/77 98 F (36.7 C) Oral 96 16 11/23/21 0502 118/75 98.6 F (37 C) Oral 85 18 11/22/21 1917 128/75 98.7 F (37.1 C) Oral 81 18 11/22/21 1622 125/64 98 F (36.7 C) Oral 89 18 11/22/21 1201 139/74 98.6 F (37 C) Oral 85 18 ABDOMEN: No scars, normal bowel sounds, soft, non-distended, non-tender, no masses palpated, no hepatosplenomegally INCISION: dressing in place, clean, dry and intact GENITAL/URINARY: Voiding without difficulty Cor: RRR no Murmurs Pulmonary: clear to auscultation anterior and posterior Extremities: no Clubbing cyanosis or ecchymosis DATA: 31 yo S/P Primary section for breech ASSESSMENT: Principal Problem: Delivery by section for breech presentation Plan: Active Problems: Third trimester Plan: S/P C/S post op day # 3 PLAN: Discharge patient to home with Follow up with me in my office in 1 week Patient offered ice pack for pain relief and accepted. Patient currently sitting in recliner and states every time she gets in and out of bed she is experiencing vertical pain on side of incision. Patient educated on splinting when getting up and using abdominal binder. Patient encouraged to nap, take a walk, and to shower to offer some relief. Subjective: Day 2: Delivery The patient feels tired. The patient denies emotional concerns. Pain is poorly controlled with current medications. The baby iswell. Baby is feeding via breast. Urinary output is adequate. The patient is ambulating well. The patient is tolerating a normal diet. Flatus has been passed. Objective: Patient Vitals for the past 8 hrs: BP Temp Temp src Pulse Resp 11/22/21 0722 139/79 97.5 F (36.4 C) Oral 92 18 11/22/21 0533 (!) 140/80 94 General: alert, appears stated age and cooperative Bowel Sounds: active Lochia: appropriate Uterine Fundus: firm Incision: healing well, no significant drainage, no dehiscence, no significant erythema DVT Evaluation: No evidence of DVT seen on physical exam. Assessment: Status post section. Postoperative course complicated by increased postoperative pain, not responding to block use of Roxicet Tylenol and Motrin. For this reason will continue observation Plan: Continue current care. Subjective: Day 1: Delivery The patient feels well. The patient denies emotional concerns. Pain is well controlled with current medications. The baby iswell. Baby is feeding via breast. Urinary output is adequate. The patient is ambulating well. The patient is tolerating a normal diet. Flatus has been passed. Objective: Patient Vitals for the past 8 hrs: BP Temp Temp src Pulse Resp 11/21/21 0730 128/78 98 F (36.7 C) Oral 88 18 11/21/21 0323 105/60 97.8 F (36.6 C) Oral 76 18 General: alert, appears stated age and cooperative Bowel Sounds: active Lochia: appropriate Uterine Fundus: firm Incision: healing well, no significant drainage, no dehiscence, no significant erythema DVT Evaluation: No evidence of DVT seen on physical exam. Assessment: Status post section. Doing well postoperatively. Plan: Continue current care. Kaitara Taraka Note: I first assisted Dr Carrizales with primary section for breech presentation. I independently closed the SQ layer with 3-0 vicryl without difficulty, and then independently closed the skin incision with 4-0 vicryl on a Raz needle without difficulty. No bleeding at completion of closure, patient tolerated procedure well. Report to ANABEL Lao and Louie Leal RN at bedside. Baby girl delivered via . Patient arrives to floor for scheduled . Patient oriented to room and call light system. Patient uses CHG wipes, provides urine specimen, and changes into gown. IV was started, labs drawn, and patient hooked up to [facility]. Admission database completed. All questions were answered @ this time. Paperwork completed. Will continue to monitor. documented in this encounter [facility] [employer] Phone: Hospital course Narrative 11-23-2021 Dali Baez APRN - CNM - 11/23/2021 9:44 AM EDT Note Date & Type Note Facility 11-23-2021 Hospital course Narrative Obstetrical Discharge Form Gestational Age:40w0d Antepartum complications: h/o bilateral choroid plexus cyst-resolved Date of Delivery: 11-20-21 Type of Delivery: for breech Delivered By: Dr Rahul Carrizales Baby: Information for the patient's : Rosanne, Baby Girl [[id number]] Anesthesia: Spinal Intrapartum complications: None Feeding method: breast Blood type: A NEGATIVE Rubella: No results found for: RUBG T. Pallidium, IGG: No results found for: TREPG Hepatitis B Surface Antigen: No results found for: HEPBSAG HIV: No results found for: [id number] complications: none Discharge Medication: Medication List START taking these medications docusate sodium 100 MG capsule Commonly known as: COLACE Take 1 capsule by mouth 2 times daily ibuprofen 800 MG tablet Commonly known as: ADVIL;MOTRIN Take 1 tablet by mouth every 8 hours oxyCODONE HCl 10 MG immediate release tablet Commonly known as: OXY-IR Take 1 tablet by mouth every 6 hours as needed for Pain for up to 5 days. STOP taking these medications ferrous gluconate 324 (38 Fe) MG tablet Commonly known as: FERGON 1 PO Where to Get Your Medications These medications were sent to [facility] [id number] [facility] [address] [place] [address] - [phone] [place] [id number] docusate sodium 100 MG capsule ibuprofen 800 MG tablet You can get these medications from any pharmacy Bring a paper prescription for each of these medications oxyCODONE HCl 10 MG immediate release tablet Discharge Date: 11/23/2021 Discharged to home with Plan: Follow up in 1 week(s) for incision check, 1 week pp check Patient has appointment made. documented in this encounter [facility] [employer] [employer] [facility] Work Phone: Hospital Discharge instructions 11-21-2021 Instructions Note Date & Type Note Facility 11-21-2021 Hospital Discharg e instructions Nettie Edwards RN - 11/21/2021 Follow-up with your OB doctor as specified. [facility] OB Department phone: Talita Baez, MSN, PUNCHER, CNM [place] [address] DIET Eat a well balanced diet focusing on foods high in fiber and protein. Drink plenty of fluids especially water. To avoid constipation you may take a mild stool softener as recommended by your doctor or brick machine operator. ACTIVITY Gradually increase your activity. Resume exercise regimen only after advice by your doctor or brick machine operator. Avoid lifting anything heavier than a gallon of milk for SIX weeks. Avoid driving until your doctor or brick machine operator has given their approval. Rise slowly from a lying to sitting and then a standing position. Climb stairs one at a time. Use caution when carrying your baby up and down the stairs. NO SEXUAL Activity for 4-6 weeks or until advised by your doctor; Nothing in vagina: intercourse, tampons, or douching. Be prepared to discuss family planning at your follow-up OB visit. You may feel tired or have a lack of energy. You may continue your vitamin to replenish nutrients post delivery. Nap when baby naps to catch up on sleep. EMOTIONS You may feel tovar, sad, teary, & overwhelmed. Contact your OB provider if you feel you may be showing signs of depression, or have thoughts of harming yourself or your . If infant will not stop crying, contact another adult for help or place in their crib on their back and take a break. NEVER shake your infant. BLEEDING Vaginal bleeding will decrease in amount over the next few weeks. You will notice that as your activity increases, your flow may increase. This is your body's way of telling you, you need to take things easier and rest more often. Call your care provider if you are saturating more than one maxi pad in an hour & resting does not help. BREAST CARE Take medications as recommended by your doctor or brick machine operator for pain If you develop a warm, red, tender area on your breast or develop a fever contact your OB provider. For moms: If you become engorged, feeding may be more difficult or painful for 1-2 days. You may find it helpful to hand express some milk so that the can latch on more easily. While , continue to take your vitamins as directed by your doctor or brick machine operator. Refer to the booklet in the folder/binder for more information. If you feel you need more assistance or have questions, please call Janett Alcazar IBCLC, fundraising consultant, at or the OB department to schedule an appointment or phone consultation. For more FREE help, visit the Support Group on Tuesday evenings at 7 pm in the OB department. INCISIONAL CARE / JAYLIN CARE If you have an acticoat dressing in place after your please leave your dressing in place for one week until you follow up with your provider. They will remove this dressing in the office when you see them. If your dressing starts to peel up or becomes soiled prior to your appointment with your provider, you may remove the dressing and clean your incision as directed below. Clean your incision in the shower with mild soap. After shower pat the incision area dry and allow the area open to air. If used, Steri-strips should be completely removed by 2 weeks but you may remove them as they become loose or soiled. If used, Landy should be removed by your care provider. If used/ordered, an abdominal binder may provide support for your incision. Use the jaylin-bottle after toileting until bleeding stops. Cleanse your perineum from front to back If used, stitches will dissolve in 4-6 weeks. You may use a sitz bath or soak in a clean tub as needed for comfort. Kegel exercises will help restore bladder control. SWELLING Try to keep your legs elevated when you are sitting. When lying down keep your legs elevated. When wearing stocking or socks, make sure they are not too tight. WHEN TO CALL THE DOCTOR If you have a temp of 100.6 or more. If your bleeding has increased and you are saturating a pad in an hour. Your abdomen is tender to touch. You are passing blood clots bigger than the size of a lemon. If you are experiencing extreme weakness or dizziness. If you are having flu-like symptoms such as achy muscles or joints. There is a foul smell or a green color to your vaginal bleeding. If you have pain that cannot be relieved. You have persistent burning or frequency with urination. Call if you have concerns about your well-being. You are unable to sleep, eat, or are having thoughts of harming yourself or your baby. You have swelling, bleeding, drainage, foul odor, redness, or warmth in/around your incision or stitches. You have a red, warm, tender area in your calf. documented in this encounter [facility] Work Phone: Clinical Note 09-15-2021 Note Date & Type Note Facility 09-15-2021 Note FINDINGS: Comparison made with prior ultrasound evaluation July 07, 2021. [place], live intrauterine is present with normal cardiac rate of 156 beats per minute. Normal activity and amniotic fluid volume. Amniotic fluid index is 10 cm. Morphology is grossly normal. Normal intraventricular contents, no significant choroid plexus cyst formation at this time. The cervix is long and closed, 3.8 cm. The placenta is posterior, fundal, not associated with the cervical os. The current sonographic age is 30 weeks and 2 days, based on the following measurements: BPD 7.2 cm (28 weeks, 5 days) Head Circumference 29.2 cm (32 weeks, 1 day) Abdominal Circumference 25.7 cm (29 weeks, 6 days) Femur Length 5.9 cm (30 weeks, 4 days) Presentation Breech Placenta Posterior fundal Grade II Weight (g) by Hpfxtkvseg37.4 % * These measurements result in an estimated date of delivery of November 22, 2021. The current estimated weight is 1529 grams (3 pounds, 6 ounces). Normal uterine morphology, no significant intrauterine septation. IMPRESSION: 1. Single, live intrauterine , current sonographic age of 30 weeks and 2 days, with an estimated date of delivery of November 22, 2021 (prior JERRY November 21, 2021). 2. Current estimated weight 1529 grams (3 pounds, 6 ounces) * Estimated Weight (g) by Percentile is based upon an accurate estimated age based on last menstrual period. Report reported and signed by Zana Mcdonough on 09/15/2021 0958 [facility] Climbing Guide Evaluation note Note Date & Type Note Facility Evaluation note Diagnosis Delivery by section for breech presentation- Primary Third trimester documented in this encounter [employer] Phone: Reason for visit Narrative Auth/Cert Note Date & Type Note Facility Reason for visit Narrative Specialty Diagnoses / Procedures Referred By Contac t Referred To Contact Diagnoses Breech presentation, single or unspecified fetus Delivery by section for breech presentation Third trimester 40 weeks , Breech, Primary . Talita Baez to engineer first assistant. Procedures [place] DELIVERY ONLY SECTION Rahul Carrizales MD [address] [facility] [address] [place] [address] [employer] [address] [place] [address] Referral ID Status Reason Start Date Expiration Date Visits Re quested Visits Authorized [id number] 1 1 [employer] Phone: Summary Purpose Family History No Family History Records FoundNo Family History Records FoundNo Family History Records Found Advance Directives No Advanced Directives Records FoundLatest Code Status on File Code Status Date Activated Date Inactivated Comments Full Code 11/20/2021 9:01 AM Full Code 11/20/2021 7:10 AM 11/20/2021 9:01 AM Full Code 11/20/2021 7:10 AM 11/20/2021 7:10 AM Full Code 11/20/2021 5:53 AM 11/20/2021 7:10 AM Additional Source Comments INFORMATION SOURCE (unrecogn ized section and content) DATE CREATED AUTHOR 10/31/2021 [facility] Me dical Specialist DATE CREATED AUTHOR AUTHOR'S ORGANIZ ATION 11/23/2021 [facility] DATE CREATED AUTHOR AUTHOR'S ORGANIZ ATION 06/28/2023 [facility] dical Specialists EPIC Ordered Prescriptions (unrec ognized section and content) Prescription Sig Dispensed Refills Start Date End Da te docusate sodium (COLACE) 100 MG capsule Take 1 capsule by mouth 2 times daily 60 capsule 2 11/23/2021 ibuprofen (ADVIL;MOTRIN) 800 MG tablet Take 1 tablet by mouth every 8 hours 120 tablet 3 11/23/2021 oxyCODONE (OXY-IR) 10 MG immediate release tabletIndications:Delive ry by section for breech presentation Take 1 tablet by mouth every 6 hours as needed for Pain for up to 5 days. 20 tablet 0 11/23/2021 11/28/2021 Scheduled Active and Recently Administ ered Medications (unrecognized section and content) Medication Order 11/20/2021 11/21/2021 11/22/2021 citric acid-sodium citrate (BICITRA) solution 30 mL (COMPLETED) 30 mL, Oral, ONCE, 1 dose, On Tue11/20/21 at 0600, Give prior to epidural placement., Labor and Delivery 0710 (Given - Provider: Felicia Cotter RN) clindamycin (CLEOCIN) 900 mg in dextrose 5 % 50 mL IVPB (COMPLETED) 900 mg, IntraVENous, SENIOR SALES REPRESENTATIVE TO O.R., 1 dose, On Tue11/20/21 at 0615, Antimicrobial Indications: Surgical Prophylaxis, Administer within 1 hour prior to incision., Labor and Delivery (Signed and Held) 0634 (New Bag - Provider: Tenisha Chance RN)0636 (Rate/Dose Verify - Provider: Felicia Cotter RN)0715 (Stopped - Provider: Felicia Cotter RN)0717 (Stopped - Provider: Felicia Cotter RN) docusate sodium (COLACE) capsule 100 mg 100 mg, Oral, 2 TIMES DAILY, First dose on Tue11/20/21 at 0930, Until Discontinued, Do not crush or break., 1000 (Not Given - Provider: Felicia Cotter RN - Reason: Patient/family refused - Comment: Refused at this time, waiting for meal)2115 (Given - Provider: Tenisha Chance RN) 901 (Given - Provider: Felicia Cotter RN)2042 (Given - Provider: Abby Garcia RN) 902 (Given - Provider: Felicia Cotter RN)2056 (Given - Provider: Tenisha Chance RN) enoxaparin (LOVENOX) injection 40 mg 40 mg, SubCUTAneous, DAILY, First dose on Tue11/20/21 at 2100, Until Discontinued, Indication of Use: Prophylaxis-DVT/PE, 2115 (Given - Provider: Tenisha Chance RN) 2042 (Given - Provider: Abby Garcia, ANABEL) 0904 (Given - Provider: Felicia Cotter RN) famotidine (PEPCID) 20 mg in sodium chloride (PF) 10 mL injection (COMPLETED) 20 mg, IntraVENous, ONCE, 1 dose, On Tue11/20/21 at 0600, Give 60 minutes before surgery., Labor and Delivery 0711 (Given - Provider: Felicia Cotter RN) gentamicin (GARAMYCIN) 308 mg in dextrose 5 % 250 mL IVPB (COMPLETED) 308 mg (5 mg/kg 61.6 kg [place] weight), IntraVENous, SENIOR SALES REPRESENTATIVE TO O.R., 1 dose, On Tue11/20/21 at 0615, Antimicrobial Indications: Surgical Prophylaxis, Administer within 1 hour prior to incision., Labor and Delivery (Signed and Held) 0717 (New Bag - Provider: Felicia Cotter RN)0757 (Canceled Entry - Provider: Amanda Espinosa APRN - ANAESTHETIC TECHNICIAN)0959 (Stopped - Provider: Felicia Cotter RN) ibuprofen (ADVIL;MOTRIN) tablet 800 mg 800 mg, Oral, EVERY 8 HOURS, First dose on Tue11/21/21 at 1500, Until Discontinued, Give in addition to any other pain medication ordered at same time for any pain indication. Once tolerating PO, discontinue Toradol and begin ibuprofen 6 hours after the final dose of Toradol. Alternate ibuprofen and acetaminophen every 4 hours., , Begin dosing 6 hours after Toradol completed, 1508 (Given - Provider: Hodan Leal RN)2304 (Given - Provider: Abby Garcia RN) 0721 (Given - Provider: Felicia Cotter RN)1455 (Given - Provider: Felicia Cotter RN)2316 (Given - Provider: Tenisha Chance RN) ketorolac (TORADOL) injection 30 mg (CANCELED) Ketorolac is contraindicated in patients with advanced renal impairment and in patients at risk of renal failure due to volume depletion. For 65 years of age and older OR weight less than 50 kg, use 15 mg IV every 6 hours; MAX dose: 60 mg/day. Dose greater than 30 mg must be administered via intramuscular route. Do not administer for more than 5 days., 30 mg, IntraVENous, EVERY 6 HOURS, 16 doses, First dose on Tue11/20/21 at 1500, Last dose on Tue11/24/21 at 0900, Give in addition to any other pain medication ordered at same time for any pain indication. Discontinue when able to take PO ibuprofen., 1506 (Given - Provider: Hodan Leal RN)2115 (Given - Provider: Tenisha Chance RN) 0312 (Given - Provider: Tenisha Chance RN)0902 (Given - Provider: Felicia Cotter RN)1429 (Not Given - Provider: Felicia Cotter RN - Reason: Other - Comment: Therapy Completed) lactated ringers bolus (COMPLETED) 1,000 mL, IntraVENous, at 1,000 mL/hr, Administer over 1 Hours, ONCE, On Tue11/20/21 at 0615, For 1 dose, Labor and Delivery. Administer bolus one hour prior to surgery., Labor and Delivery (Signed and Held) 0535 (New Bag - Provider: Tenisha Chance RN)0635 (Due: Stopped - Provider: Tenisha Chance RN) metoclopramide (REGLAN) injection 10 mg (COMPLETED) 10 mg, IntraVENous, ONCE, 1 dose, On Tue11/20/21 at 0600, Give 60 minutes before surgery., Labor and Delivery 0714 (Given - Provider: Felicia Cotter, ANABEL) vitamin 27-1 MG tablet 1 tablet 1 tablet, Oral, DAILY, First dose on Tue11/20/21 at 0930, Until Discontinued, Begin when normal bowel activity resumes., 1000 (Not Given - Provider: Felicia Cotter RN - Reason: Patient/family refused - Comment: Patient refused at this time, waiting for food) 0902 (Given - Provider: Felicia Cotter RN) 0903 (Given - Provider: Felicia Cotter RN) rho(D) immune globulin (HYPERRHO S/D) injection 300 mcg 300 mcg, IntraMUSCular, ONCE, 1 dose, On Tue11/20/21 at 0930, 1808 (Not Given - Provider: Felicia Cotter RN - Reason: Order parameters not met) sodium chloride flush 0.9 % injection 5-40 mL 5-40 mL, IntraVENous, EVERY 12 HOURS SCHEDULED (2 times per day), First dose on Tue11/20/21 at 0930, Until Discontinued, For Line Patency: Peripheral IV = 5 mL; Midline or Central Line = 10 mL/lumen. If following IV push medication, administer flush at same rate as the IV push. Flush volume is determined by type of infusion therapy being given. For non-viscous solutions use: Peripheral IV = 5 mL Midline or Central Line = 10 mL/lumen For viscous solutions (i.e. blood components, parenteral nutrition, contrast media, or after obtaining blood sample) use: Peripheral IV = 10 mL Midline or Central Line = 20 mL/lumen, 1000 (Not Given - Provider: Felicia Cotter RN - Reason: IV Fluid Infusing)2135 (Not Given - Provider: Tenisha Chance RN - Reason: IV Fluid Infusing) 0820 (Not Given - Provider: Felicia Cotter RN - Reason: IV Fluid Infusing)2202 (Given - Provider: Abby Garcia RN) 1557 (Not Given - Provider: Felicia Cotter RN - Reason: Loss of IV access)2219 (Not Given - Provider: Tenisha Chance RN - Reason: IV Fluid Infusing) iwzbrhd-coimnh-jyrkk pertussis (BOOSTRIX) injection 0.5 mL 0.5 mL, IntraMUSCular, PRIOR TO DISCHARGE, 1 dose, Starting on Tue11/20/21 at 0901, Until Discontinued, If not previously administered during at 27-36 weeks as recommended by CDC., Continuous Medication Order 11/20/2021 11/21/2021 11/22/2021 lactated ringers infusion IntraVENous, at 125 mL/hr, CONTINUOUS, Starting on Tue11/20/21 at 0930, 1049 (New Bag - Provider: Felicia Cotetr RN)1053 (Rate/Dose Verify - Provider: Felicia Cotter RN)1100 (Rate/Dose Verify - Provider: Felicia Cotter RN)1645 (Rate/Dose Verify - Provider: Felicia Cotter RN)1845 (Rate/Dose Verify - Provider: Felicia Cotter RN)1845 (New Bag - Provider: Felicia Cotter RN) 0102 (New Bag - Provider: Tenisha Chance RN)1024 (Stopped - Provider: Hodan Leal, RN) oxytocin (PITOCIN) 30 units in 500 mL infusion 87.3 aicha-units/min (87.3 mL/hr), IntraVENous, CONTINUOUS, Starting on Tue11/20/21 at 1145, Until Discontinued, Run at 87.3mL/hr for 2nd bag 1116 (New Bag - Provider: Hodan Leal, ANABEL)1655 (Stopped - Provider: Felicia Cotter RN) PRN Medication Order 11/20/2021 11/21/2021 11/22/2021 0.9 % sodium chloride infusion IntraVENous, at 5-250 mL/hr, PRN, if patient receiving piggyback infusions and maintenance fluids are not ordered OR KVO fluids to protect IV site / prevent frequent line interruptions/ long duration, Starting on Tue11/20/21 at 0901, For piggyback infusion, administer at same rate as piggyback for a total of 25 mL. Enter 25 mL into dose field and piggyback rate into rate field of order. If piggyback is infusing at a rate less than 100 mL/hr, enter 25 mL into dose field and 100 mL/hr into rate field of order. For KVO fluids, enter rate of 20 mL/hr or less into rate field of order., acetaminophen (TYLENOL) tablet 1,000 mg 1,000 mg, Oral, EVERY 8 HOURS PRN, Starting on Tue11/20/21 at 0901, Until Discontinued, Other, Pain (1-10), Give in addition to any other pain medication ordered at same time for any pain indication. Maximum dose of acetaminophen is 4000mg from all sources in 24 hours. Alternate ibuprofen and acetaminophen every 4 hours., 1214 (Given - Provider: Felicia Cotter RN) 1212 (Given - Provider: Felicia Cotter RN)2201 (Given - Provider: Abby Garcia RN) 1020 (Given - Provider: Felicia Cotter RN)2128 (Given - Provider: Erick Dick RN) carboprost (HEMABATE) injection 250 mcg 250 mcg, IntraMUSCular, PRN, Starting on Tue11/20/21 at 0901, Until Discontinued, bleeding, May repeat every 15 minutes up to a cumulative maximum dose of 1000 mcg, at physician's request., Post-op diphenhydrAMINE (BENADRYL) injection 25 mg 25 mg, IntraVENous, EVERY 6 HOURS PRN, Starting on Tue11/20/21 at 0901, Until Discontinued, Itching, Hives, lansinoh lanolin ointment Topical, EVERY 1 HOUR PRN, Dry Skin, nipple discomfort, Starting on Tue11/20/21 at 0901, Post-op 0750 (Given - Provider: Felicia Cotter RN - Comment: nipples) measles, mumps & rubella vaccine (MMR) injection 0.5 mL 0.5 mL, SubCUTAneous, PRN, 1 dose, Starting on Tue11/20/21 at 0901, Until Discontinued, if non immune or equivical, methylergonovine (METHERGINE) injection 200 mcg 200 mcg, IntraMUSCular, PRN, Starting on Tue11/20/21 at 0901, Until Discontinued, Bleeding, PRN for post- hemorrhage, if not hypertensive., miSOPROStol (CYTOTEC) tablet 800 mcg 800 mcg, Rectal, PRN, 1 dose, Starting on Tue11/20/21 at 0901, Until Discontinued, Post- Hemorrhage, Notify Physician prior to administration., Post-op nalbuphine (NUBAIN) injection 10 mg 10 mg, IntraVENous, EVERY 4 HOURS PRN, Starting on Tue11/20/21 at 0901, Until Discontinued, or itching, Post-op naloxone (NARCAN) injection 0.4 mg 0.4 mg, IntraVENous, PRN, Starting on Tue11/20/21 at 0901, Until Discontinued, Opioid Reversal, Post-op ondansetron (ZOFRAN) injection 4 mg (CANCELED) 4 mg, IntraVENous, EVERY 6 HOURS PRN, Starting on Tue11/20/21 at 0901, Until Tue11/22/21 at 1036, Nausea, nausea, 2202 (Given - Provider: Abby Garcia RN) ondansetron (ZOFRAN-ODT) disintegrating tablet 4 mg 4 mg, Oral, EVERY 8 HOURS PRN, Starting on Tue11/22/21 at 1035, Until Discontinued, Nausea, Vomiting oxyCODONE (ROXICODONE) immediate release tablet 10 mg 10 mg, Oral, EVERY 4 HOURS PRN, Starting on Tue11/20/21 at 1403, Until Discontinued, Pain Severe (7-10) 0001 (Given - Provider: Tenisha Chance RN)0742 (Given - Provider: Felicia Cotter RN)1401 (Given - Provider: Hodan Leal RN)1839 (Given - Provider: Felicia Cotter RN) 0102 (Given - Provider: Abby Garcia RN)0542 (Given - Provider: Abby Garcia RN)1016 (Given - Provider: Felicia Cotter RN) oxyCODONE (ROXICODONE) immediate release tablet 5 mg 5 mg, Oral, EVERY 4 HOURS PRN, Starting on Tue11/20/21 at 1402, Until Discontinued, Pain Mild (1-3), Pain Moderate (4-6) 1409 (Given - Provider: Felicia Cotter RN - Comment: pt requests 1 pill) 1625 (Given - Provider: Felicia Cotter RN)2057 (Given - Provider: Tenisha Chance RN) oxytocin (PITOCIN) 30 units in 500 mL infusion (CANCELED) 87.3 aicha-units/min (87.3 mL/hr), IntraVENous, CONTINUOUS PRN, Starting on Tue11/20/21 at 0553, Until Tue11/20/21 at 0901, Bleeding, Post- use ONLY after delivery of baby/ excessive bleeding/ uterine atony. Following Bolus from bag administration, reduce the rate to 87.3 mL/hr and administer remaining 20 units over 229 minutes to complete the infusion of 30 units in 500 mL. Do NOT administer more than 1 bag of pitocin without a new order from the physician., Multiphase Phase of Care 0857 (Rate/Dose Change - Provider: Felicia Cotter RN)1045 (Stopped - Provider: Felicia Cotter RN) oxytocin (PITOCIN) 30 units in 500 mL infusion (CANCELED) 10 Units, IntraVENous, PRN, 1 dose, Starting on Tue11/20/21 at 0553, Until Tue11/20/21 at 0901, Bleeding, Post- use ONLY after delivery of baby/ excessive bleeding/ uterine atony. Bolus for bag to infuse at 909 ml/hour for 11 minutes (10 units in 167ml)., Multiphase Phase of Care 08 (Given by Other Clinician - Provider: Felicia Cotter RN) sennosides-docusate sodium (SENOKOT-S) 8.6-50 MG tablet 1 tablet 1 tablet, Oral, DAILY PRN, Starting on Tue11/20/21 at 0901, Until Discontinued, Constipation, simethicone (MYLICON) chewable tablet 80 mg 80 mg, Oral, EVERY 6 HOURS PRN, Starting on Tue11/20/21 at 0901, Until Discontinued, Cramping, Flatulence, sodium chloride flush 0.9 % injection 5-40 mL 5-40 mL, IntraVENous, PRN, Starting on Tue11/20/21 at 0901, Until Discontinued, Line Care, After every IV line use, For Line Patency: Peripheral IV = 5 mL; Midline or Central Line = 10 mL/lumen. If following IV push medication, administer flush at same rate as the IV push. Flush volume is determined by type of infusion therapy being given. For non-viscous solutions use: Peripheral IV = 5 mL Midline or Central Line = 10 mL/lumen For viscous solutions (i.e. blood components, parenteral nutrition, contrast media, or after obtaining blood sample) use: Peripheral IV = 10 mL Midline or Central Line = 20 mL/lumen, Care Teams (unrecognized sec tion and content) Senior Budget Analyst Relationship Specialty Start Date End Date Rashida Hernandez MD [address] [place] [address] PCP - General 11/19/21 FOR RECORDS PERTAINING TO PATIENTS WHO ARE OR HAVE BEEN ENROLLED IN A CHEMICAL DEPENDENCY/SUBSTANCEABUSE PROGRAM, SOME INFORMATION MAY BE OMITTED. This clinical summary was aggregated from multiple sources. Caution should be exercised in using it in the provision of clinical care. This summary normalizes information from multiple sources, and as a consequence, information in this document may materially change the coding, format and clinical context of patient data. In addition, data may be omitted in some cases. CLINICAL DECISIONS SHOULD BE BASED ON THE PRIMARY CLINICAL RECORDS. [employer] [facility]. provides no warranty or guarantee of the accuracy or completeness of information in this document.
[2023-06-30 06:11] LABS: Basophils Percent Auto 0.3 % (0.2-2.0); Eosinophils Absolute Auto 0.1 10^3/uL (0.0-0.7); Eosinophils Percent Auto 1.1 % (0.9-7.0); Hematocrit 32.1 % (36.0-48.0); Hemoglobin 10.8 g/dL (12.0-16.0); Immature Granulocytes Abs Auto 0.17 10^3/uL (0.00-0.03); Immature Granulocytes Pct Auto 2.1 % (0.0-0.5); Lymphocytes Absolute Auto 1.1 10^3/uL (1.2-3.8); Mean Corpuscular HGB Conc 33.6 g/dL (29.9-35.2); Mean Corpuscular Hemoglobin 30.9 pg (26.7-34.0); Mean Corpuscular Volume 91.7 fL (81.0-99.0); Mean Platelet Volume 11.8 fL (9.5-13.5); Monocytes Absolute Auto 0.5 10^3/uL (0.3-0.8); Monocytes Percent Auto 6.3 % (1.7-12.0); Neutrophils Percent Auto 76.2 % (43.0-75.0); Platelet Count 121 10^3/uL (150-450); Red Cell Distribution Width 14.3 % (11.0-15.0); White Blood Count 7.9 10^3/uL (4.0-11.0)
[2023-06-30 06:12] LABS: Bilirubin Urine NEGATIVE (NEGATIVE); Blood Urine NEGATIVE (NEGATIVE); Clarity Urine CLEAR (CLEAR); Color Urine YELLOW (YELLOW); Glucose Urine UA NEGATIVE (NEGATIVE); Ketones Urine NEGATIVE (NEGATIVE); Leukocyte Esterase Urine SMALL (NEGATIVE); Nitrite Urine NEGATIVE (NEGATIVE); Protein Urine NEGATIVE (NEG/TRACE); Specific Gravity Urine 1.025 (1.005-1.025); Urobilinogen Urine 0.2 EU/dL (0.2-1.0)
[2023-06-30 06:21] LABS: Amphetamine Screen Urine NEGATIVE (NEGATIVE); Barbiturates Screen Urine NEGATIVE (NEGATIVE); Benzodiazepines Screen Urine NEGATIVE (NEGATIVE); Buprenorphine Screen Urine NEGATIVE (NEGATIVE); Cannabinoid Screen Urine NEGATIVE (NEGATIVE); Cocaine Screen Urine NEGATIVE (NEGATIVE); Methadone Screen Urine NEGATIVE (NEGATIVE); Methamphetamines Screen Urine NEGATIVE (NEGATIVE); Opiate Screen Urine NEGATIVE (NEGATIVE); Oxycodone Screen Urine NEGATIVE (NEGATIVE); Phencyclidine Screen Urine NEGATIVE (NEGATIVE); Tricyclic Antidepressant Urine NEGATIVE (NEGATIVE)
[2023-06-30 06:23] LABS: Bacteria Urine LARGE #/HPF (NONE SEEN); Crystals Seen? None Seen #/HPF (None Seen); Mucus Urine LARGE (NONE SEEN); RBC Urine 0-2 #/HPF (0-2); Squamous Epithelial Cell Urine MANY #/LPF (NONE/RARE)
[2023-06-30] MEDS: METOCLOPRAMIDE HCL 10 MG/2 ML VIAL IVP (06:23)
[2023-06-30] MEDS: CITRIC ACID/SODIUM CITRATE 30 ML SOLUTION ORACIT SHOHL'S SOLN PO (06:23)
[2023-06-30] MEDS: LACTATED RINGER'S SOLUTION 1,000 ML 1000 ML IV ×2 (06:23→06:57)
[2023-06-30] MEDS: FAMOTIDINE/PF 20 MG/2 ML VIAL IV (06:23)
[2023-06-30 06:24] LABS: Cast Seen? NONE SEEN #/LPF (NONE SEEN); Urine Culture Indicated YES
[2023-06-30] MEDS: CLINDAMYCIN PHOSPHATE/D5W 900 MG/50 ML PIGGYBACK 100 MG IV ×2 (07:35→14:37)
[2023-06-30] MEDS: BUPIVACAINE HCL 0.5% PF 50 MG/10 ML VIAL INJ (08:55)
[2023-06-30] MEDS: BUPIVACAINE LIPOSOME/PF 266 MG/13.3 ML VIAL INJ (08:55)
--- NOTE | 2023-06-30 09:27 | P.EN_ITS ---
Event Note Event Note: admissions assistant note. I assisted Dr Keith with repeat section. I assisted as directed by physician. I independently closed the SQ layer w 3-0 vicryl without difficulty. I then independently closed the incison with 4-0 vicryl on a Raz needle without difficulty. Hemostasis noted at completion.
[2023-06-30] MEDS: ACETAMINOPHEN 500 MG TABLET 1000 MG PO ×2 (09:44→18:18)
[2023-06-30] MEDS: KETOROLAC TROMETHAMINE 30 MG/ML VIAL IVP ×3 (09:53→22:01)
[2023-06-30] MEDS: OXYTOCIN/0.9 % SODIUM CHLORIDE 20 UNITS/1,000 ML PLAST..BAG 125 UNIT IV (09:53)
--- NOTE | 2023-06-30 16:59 | RESP.RT ---
Done per nursing
[2023-07-01] VITALS (8 sets, daily range): BP systolic 115–131; BP diastolic 62–77; PULSE 75–90; RESP 16–20; TEMP 36.3–36.8
[2023-07-01] MEDS: ACETAMINOPHEN 500 MG TABLET 1000 MG PO ×3 (02:14→18:09)
[2023-07-01 06:05] LABS: Basophils Percent Auto 0.3 % (0.2-2.0); Eosinophils Absolute Auto 0.1 10^3/uL (0.0-0.7); Eosinophils Percent Auto 0.7 % (0.9-7.0); Hematocrit 30.8 % (36.0-48.0); Hemoglobin 10.3 g/dL (12.0-16.0); Immature Granulocytes Abs Auto 0.13 10^3/uL (0.00-0.03); Immature Granulocytes Pct Auto 1.3 % (0.0-0.5); Lymphocytes Absolute Auto 1.4 10^3/uL (1.2-3.8); Lymphocytes Percent Auto 14.2 % (20.5-60.0); Mean Corpuscular HGB Conc 33.4 g/dL (29.9-35.2); Mean Corpuscular Volume 92.8 fL (81.0-99.0); Mean Platelet Volume 12.2 fL (9.5-13.5); Monocytes Absolute Auto 0.7 10^3/uL (0.3-0.8); Monocytes Percent Auto 6.7 % (1.7-12.0); Neutrophils Absolute Auto 7.6 10^3/uL (1.4-6.5); Neutrophils Percent Auto 76.8 % (43.0-75.0); Platelet Count 116 10^3/uL (150-450); Red Blood Count 3.32 10^6/uL (4.20-5.40); White Blood Count 9.9 10^3/uL (4.0-11.0)
[2023-07-01] MEDS: IBUPROFEN 400 MG TABLET 800 MG PO ×3 (06:16→21:32)
[2023-07-01] MEDS: ENOXAPARIN SODIUM 40 MG/0.4 ML SYRINGE SUBQ (08:18)
[2023-07-01] MEDS: DOCUSATE SODIUM 100 MG CAPSULE PO ×2 (08:19→21:32)
--- NOTE | 2023-07-01 08:27 | PC.NURSE ---
small bruise noted to right upper arm - improving from previous day's assessment
--- NOTE | 2023-07-01 10:08 | P.ON_ITS ---
Brief Operative Note Date of procedure: 07/01/23 Pre-op diagnosis: iup at 39 1/7wks, previous c/s Post-op diagnosis: same as pre-op Procedure: NAME OF PROCEDURE: [ section ] PROCEDURE: Patient was taken back to the Operating Room where she was given a spinal anesthesia with Duramorph without difficulty. She was prepped and draped in the normal sterile fashion. A Pfannenstiel skin incision was then made 2 cm above the symphysis pubis and carried down to underlying rectus fascia using a Bovie. The fascia was incised in the midline and extended laterally using Ross scissors. Two Valarie clamps were placed on the superior aspect of the fascia and dissected off the underlying rectus muscles. The same was performed on the inferior aspect as well. The muscles were then in the midline. Peritoneum was identified and entered bluntly. The peritoneum was then extended superiorly and inferiorly with good visualization of the bladder. The bladder blade was inserted. A low transverse incision was made on the patient's uterus and extended laterally digitally. The was then delivered atraumatically after the bladder blade was removed in the cephalic position. The cord was clamped and cut. Cord blood was obtained. The infant was handed off to awaiting team. The patient's placenta was spontaneously delivered. The uterus was then exteriorized. The uterus was cleared of all clots and debris. The blad alverto blade was reinserted. The patient's uterine incision was closed using #0 Vicryl in a running lock fashion. Excellent hemostasis was assured. The uterus was then returned to the patient's abdomen. The patient's abdomen was copiously irrigated using warm saline. Peritoneal gutters were cleared of all clots and debris. Again excellent hemostasis was assured. The patient's peritoneum was closed using 3-0 Vicryl in a running fashion. The patient's fascia was closed using #0 Vicryl in a running fashion. The patient's skin was closed using 4-0 Vicryl subcuticularly. The patient tolerated the procedure well. Sponge, lap, and needle counts were correct x2. The patient was taken to the Recovery Room in stable condition. Anesthesia: spinal Surgeon: Leo Keith Hat And Cap Drying Room Attendant: ADLI STARK Estimated blood loss (mL): 575 Pathology: other (placenta) Condition: stable Disposition: PACU Urinary Catheter Management Urinary Catheter Management Urethral: Cath placed during this visit: yes, but has since been removed by the nurse Insertion date: 06/30/23 Insertion time: 07:45 Removal date: 07/01/23 Removal time: 06:05
--- NOTE | 2023-07-01 10:10 | P.OBPRC_ITS ---
Procedure Pre-op/Post-op diagnoses: Pre-Op/Post-Op Diagnoses Operation Date: 06/30/23 07:30 <No data on this case meets the specified criteria> Procedure: Procedures Operation Date: 06/30/23 07:30 Actual Procedure Side Surgeon p with delivery of viable baby boy Not Applicable Leo Keith DO Filter Press Pumper: DALI STARK Estimated blood loss (mL): 575 Disposition: PACU Anesthesia type: Epidural heart rate - 1 minute: 100 bpm or Greater respiratory effort - 1 minute: Spontaneous/Strong Cry muscle tone - 1 minute: Minimal Flexion/Extension reflex response - 1 minute: Prompt Response color - 1 minute: Pallor or Cyanosis total score - 1 minute: 7 heart rate - 5 minute: 100 bpm or Greater respiratory effort - 5 minute: Spontaneous/Strong Cry muscle tone - 5 minute: Active Movement reflex response - 5 minute: Prompt Response color - 5 minute: Pallor or Cyanosis total score - 5 minute: 8
--- NOTE | 2023-07-01 10:46 | P.OBPN_ITS ---
OB - PN: Subj Subjective Patient comments: no complaints and pain well controlled [place] status: doing well Exam Constitutional Vital Signs, click to edit/add: Last Vital Signs Temp 98.1 F 07/01/23 08:27 Pulse 88 07/01/23 08:27 Resp 16 07/01/23 08:27 BP 131/77 07/01/23 08:27 Pulse Ox 97 06/30/23 09:50 O2 Del Method Room Air 07/01/23 08:27 Documenting provider has reviewed patient's vital signs: yes Common normals: no apparent distress Respiratory Common normals: normal respiratory effort and clear to auscultation bilaterally Cardio Common normals: regular rate and regular rhythm GI Common normals: Normal to inspection, nondistended, normoactive bowel sounds present Extremity Common normals: no calf tenderness Results Labs Labs: Short CBC 07/01/23 Range/Units 05:49 WBC 9.9 (4.0-11.0) 10^3/uL Hgb 10.3 L (12.0-16.0) g/dL Hct 30.8 L (36.0-48.0) % Plt Count 116 L (150-450) 10^3/uL Urinary Catheter Management Urinary Catheter Management Urethral: Cath placed during this visit: yes, but has since been removed by the nurse Insertion date: 06/30/23 Insertion time: 07:45 Removal date: 07/01/23 Removal time: 06:05 OB - PN: A/P Plan - day: 1 Plan: routine postop care, discharge home and other (1wk) Time Spent with Patient Time: Total time spent is greater than 50% in coordination of care (as documented) at patient's floor/unit and/or counseling patient: Total time spent with greater than 50% in coordination of care (as documented) at patient's floor/unit and/or counseling patient: less than 15 minutes
--- NOTE | 2023-07-01 16:50 | PC.NURSE ---
small bruise noted to right upper arm - unchanged from previous assessment
[2023-07-02 01:38] VITALS: RESP 18
[2023-07-02 01:39] VITALS: BP 135/74; PULSE 101
[2023-07-02] MEDS: ACETAMINOPHEN 500 MG TABLET 1000 MG PO ×2 (01:59→09:52)
[2023-07-02] MEDS: IBUPROFEN 400 MG TABLET 800 MG PO (06:47)
[2023-07-02] MEDS: DOCUSATE SODIUM 100 MG CAPSULE PO (08:33)
[2023-07-02] MEDS: ENOXAPARIN SODIUM 40 MG/0.4 ML SYRINGE SUBQ (08:33)
[2023-07-02 08:38] VITALS: BP 133/68; PULSE 97
[2023-07-02 08:45] VITALS: RESP 16; TEMP 36.7
--- NOTE | 2023-07-02 09:16 | PC.NURSE ---
Charting of Louie FONTANEZ reviewed & agreed with. Bradford Garcia
--- NOTE | 2023-07-02 09:56 | RESP.RT ---
Done per nursing
--- NOTE | 2023-07-02 12:50 | PM.OBDS ---
DS: Providers Provider Date of admission: 06/30/23 05:34 Primary care physician: MORGAN GRIMES Admitting clinician: Leo Keith Consults: 06/30/23 Consult to Anesthesiology Routine Consulting Provider: Stephon Malcolm Reason for consultation: c/s Has provider been notified: No Discharging clinician: Estefany Long Anticipated date of discharge: 07/02/23 DS: Diagnosis Discharge Diagnosis (1) Status post repeat low transverse section: Assessment and plan: UNCOMPLICATED REPEAT LOW TRANSVERSE CS. NORMAL EXAM. INSTRUCTIONS GIVEN. DISCHARGE HOME WITH BABY. BREAST FEEDING WITHOUT PROBLEM. SCRIPTS TO PATIENT FOR PERCOCET 5/325 (15) AND IBUPROFEN 800 (30) WITH NO REFILLS. Plan DISCHARGE HOME. FOLLOW UP ONE WEEK WITH DR. KEITH FOR INCISION CHECK. OB - DS: Summary Hospital Course Hospital Course: UNCOMPLICATED Time spent discussing smoking cessation with patient: 3 to 10 minutes Peripartum Data - Procedures: Procedures Operation Date: 06/30/23 07:30 Actual Procedure Side Surgeon p with delivery of viable baby boy Not Applicable Leo Keith DO Peripartum Data - Vaginal Delivery Procedures: Procedures Operation Date: 06/30/23 07:30 Actual Procedure Side Surgeon p with delivery of viable baby boy Not Applicable Leo Keith DO Complications complications: none Infant Delivery method: section Gender: male Discharge plan: home Status at Discharge Cognitive/behavioral status at discharge: WNL Functional status at discharge: independent ambulation Overall status at discharge: patient is back to baseline Time Spent with Patient Time attestation: Total time spent providing and/or coordinating discharge services: Time spent: less than 30 minutes Exam Constitutional Vital Signs, click to edit/add: Last Vital Signs Temp 98.1 F 07/02/23 08:45 Pulse 97 H 07/02/23 08:38 Resp 16 07/02/23 08:45 BP 133/68 07/02/23 08:38 Pulse Ox 97 06/30/23 09:50 O2 Del Method Room Air 07/02/23 01:38 Documenting provider has reviewed patient's vital signs: yes Common normals: no apparent distress, average body habitus, oriented x3, healthy appearing, alert and well nourished General appearance: cooperative, comfortable and well kempt HENAL Common normals: normocephalic and head/scalp atraumatic Eye Pupil: PERRL and accommodation reflex normal Neck & C-Spine Common normals: full ROM and supple Respiratory Common normals: normal respiratory effort Cardio Common normals: regular rate and regular rhythm GI Common normals: Normal to inspection, nondistended, normoactive bowel sounds present, soft to palpation and non-tender Auscultation: normoactive bowel sounds Common normals: no CVA tenderness Back & Pelvis Common normals: thoracic and lumbar spine normal to inspection and no thoracic nor lumbar tenderness Extremity Common normals: normal to inspection, full ROM and no calf tenderness Neuro Common normals: CN's II-XII intact bilaterally, moves all extremities, no focal motor deficits and no sensory deficits noted Psych Common normals: mental status grossly normal, thought process normal, cooperative, affect normal and speech normal Discharge Plan Discharge Disposition: Home, Self-Care Condition: Good Assessment: S/P REPEAT CS. NO COMPLAINTS. INCISION DRY AND INTACT. AMBULATING EATING AND ELIMINATING NORMALLY. BREAST FEEDING WITHOUT PROBLEM. AFEBRILE VSS. Health Concerns: NONE Plan of Treatment: DISCHARGE HOME Discharge Medications: No Action No Known Home Medications Forms: Portal Instructions
[2023-07-02] MEDS: MEASLES,MUMPS,RUBELLA VACC/PF 0.5 ML VIAL SQ (13:28)
== END 2023-07-02 13:40 | disposition home or self-care (01) | DRG 788 ==
PROVIDERS: Obstetrics & Gynecology; Admitting Provider Midwife; PCP Family Medicine; Visit Provider Midwife
PROC: 10D00Z1 Extraction of Products of Conception, Low, Open Approach (ICD-10-PCS; CPT 59514; principal; 2023-06-30 07:30)
DX: O34.211 Maternal care for low transverse scar from previous cesarean delivery (principal); Z37.0 Single live birth; Z3A.39 39 weeks gestation of pregnancy
CPT/HCPCS: 36415; 51702; 64488; 80307; 81001; 85025; 86850; 86900; 86901; 87086; 88307; 90471; 90707; 94667; 94668; 96372; 96374; 96375; 99999; J1094

== ENCOUNTER 2023-07-05 08:10 | Outpatient (OUT) | payer OTHER, SELFPAY ==
--- OUTSIDE RECORDS SUMMARY | 2023-07-05 08:15 | XMS_ITS | CCD ---
Author Name Unknown Address [address] [facility] [address] [place] [address] Organization [facility] Care Team Providers Care Deckhand Tuna Boat Name Role Phone Unavailable Primary Care Provider Unavaildonaldo Hernandez MD, Rashida Koehler Primary Care Provider RAHUL CARRIZALES Admitting Unavailable RAHUL CARRIZALES Attending Unavailable RAHUL CARRIZALES Admitting Unavailable RAHUL CARRIZALES Attending Unavailable RASHIDA HERNANDEZ Primary Care Unavailable Floro HAYDEN, Dali L Unavailable Rashida Hernandez MD Primary Care Provider [phone] FLORO, DALI L Attending Unavailable FLORO, DALI [...] Allergy Type Date of Onset Reaction(s) Facility (2 sources) Amoxicillin Drug Allergy 07-09-2021 Unknown [facility] Medications Current Medications Medication Drug Class(es) Dates [...] mg docusate sodium 50 mg / sennosides, long term 8.6 mg oral tablet (1 source) Start: [...] MELISSA) 30 units in 500 mL infusion 28-0.8 MG tablet (1 source) 28-0.8 MG tablet 1 tablet 1 (one) time each day at the same time. 0 Active vitamin 27-1 MG tab let 1 tablet [...] Test Name Value Interpretation Reference Range Facility ALL CBC WITH AUTO DIFFon BASOPHILS ABSOLUTE AUTO 0.0 [facility] Basophils/100 WBC (Bld) 0.3 % 0.2 - 2.0 % [facility] Eosin[facility]/100 WBC (Bld) 0.7 % Low 0.9 - 7.0 % [facility] Erythrocyte distribution width (RBC) [Ratio] 14.0 % 11.0 - 15.0 % [facility] Hematocrit (Bld) [Volume fraction] 30.8 % Low 36.0 - 48.0 % [facility] Hemoglobin (Bld) [Mass/Vol] 10.3 g/dL Low 12.0 - 16.0 g/dL [facility] IMMATURE GRANULOCYTES ABS AUTO 0.13 High [facility] Immature granulocytes/100 WBC (Bld) 1.3 % High 0.0 - 0.5 % [facility] Interpretation and review of laboratory results Abnormal [facility] LYMPHOCYTES ABSOLUTE AUTO 1.4 [facility] Lymphocytes/100 WBC (Bld) 14.2 % Low 20.5 - 60.0 % [facility] MCH (RBC) [Entitic mass] 31.0 pg 26.7 - 34.0 pg [facility] MCHC (RBC) [Mass/Vol] 33.4 g/dL 29.9 - 35.2 g/dL [facility] MCV (RBC) [Entitic vol] 92.8 fL 81.0 - 99.0 fL [facility] MONOCYTES ABSOLUTE AUTO 0.7 [facility] Monocytes/100 WBC (Bld) 6.7 % 1.7 - 12.0 % [facility] NEUTROPHILS ABSOLUTE AUTO 7.6 High [facility] Neutrophils/100 WBC (Bld) 76.8 % High 43.0 - 75.0 % [facility] Platelet mean volume (Bld) [Entitic vol] 12.2 fL 9.5 - 13.5 [facility]L [facility] PLT 116 Low [facility] RBC 3.32 Low [facility] WBC 9.9 [facility] US BIOPHYSICAL PROFILE WO NON STRESS TESTINGon [...] TEST IS RECOMMENDED. ELECTRONICALLY SIGNED BY: Gray David, DO Normal Not Available US OB FOLLOW [...] OB FOLLOW UP TRANSABDOMIN AL APPROACHon 06-09-2023 US OB FOLLOW UP TRANSABDOMINAL APPROACH This is a summary report. The complete report is available in the patient's medical record. If you cannot access the medical record, please contact the sending organization for a detailed fax or copy. US OB FOLLOW UP TRANSABDOMINAL APPROACH: 06/09/2023 9:42 [...] US OB FOLLOW UP TRANSABDOMIN AL APPROACHon 06-03-2023 US OB FOLLOW UP TRANSABDOMINAL APPROACH This is a summary report. The complete report is available in the patient's medical record. If you cannot access the medical record, please contact the sending organization for a detailed fax or copy. US OB FOLLOW UP TRANSABDOMINAL APPROACH: 06/03/2023 2:35 [...] Hemoglobin (Bld) [Mass/Vol] 10.8 g/dL Low 11.9-15.1 [facility] Comment on above: Performed By: #### H GB #### [facility] [address] [place] [address] Licensed Life And Health Agent: Juan Luis Cherry MD Hemoglobin (Bld) [Mass/Vol] 10.8 g/dL Low 11.9 - 15.1 g/dL [facility] Interpretation and review of laboratory results Abnormal [facility] DRUG SCREEN MULTI URINEon Amphetamine Screen, Ur Negative NEGATIVE [facility] Barbiturate Screen, Ur Negative NEGATIVE [facility] Benzodiazepine Screen, Urine Negative NEGATIVE [facility] Buprenorphine Urine Negative NEGATIVE [facility] Cannabinoid Scrn, Ur Negative NEGATIVE [facility] Cocaine Metabolite, Urine Negative NEGATIVE [facility] Methadone Screen, Urine Negative NEGATIVE [facility] Methamphetamine, Urine Negative NEGATIVE [facility] Opiates, Urine Negative NEGATIVE [facility] Oxycodone Screen, Ur Negative NEGATIVE [facility] Phencyclidine, Urine Negative NEGATIVE [facility] Propoxyphene, Urine Negative NEGATIVE [facility] Tricyclic Antidepressants, Urine Negative NEGATIVE [facility] Comment on above: Drug screen results are to be used for medical purposes only. All positive results are unconfirmed. Testing for employment or legal uses should be sent to a reference laboratory for confirmation. SURY NATALIO [facility] Drug Scr, Abuse, Uron 2021 Amphetamine(s),Ur Negative Normal [facility] Comment on above: Performed By: #### D AU #### [facility] [address] [place], [place] [phone] Licensed Life And Health Agent: Juan Luis Cherry MD Barbiturate(s),Ur Negative Normal NEG [facility] Comment on above: Performed By: #### D AU #### [facility] [address] [place], [place] [phone] Licensed Life And Health Agent: Juan Luis Cherry MD Benzodiazepine(s) Negative Normal NEG [facility] Comment on above: Performed By: #### D AU #### [facility] [address] [place], [place] [phone] Licensed Life And Health Agent: Juan Luis Cherry MD Buprenorphrine, Ur Negative Normal [facility] Comment on above: Performed By: #### D AU #### [facility] [address] [place], [place] [phone] Licensed Life And Health Agent: Juan Luis Cherry MD Cannabinoid(s),Ur Negative Normal [facility] Comment on above: Performed By: #### D AU #### [facility] [address] [place], [place] [phone] Licensed Life And Health Agent: Juan Luis Cherry MD Cocaine Metabolite Negative Normal [facility] Comment on above: Performed By: #### D AU #### [facility] [address] [place], [place] [phone] Licensed Life And Health Agent: Juan Luis Cherry MD Methadone Ql (U) Negative Normal NEG [facility] Comment on above: Performed By: #### D AU #### [facility] [address] [place] [address] Licensed Life And Health Agent: Juan Luis Cherry MD Methamphetamine, Ur Negative Normal NEG [facility] Comment on above: Performed By: #### D AU #### [facility] [address] [place] [address] Dr. [place], [facility] Licensed Life And Health Agent: Juan Luis Cherry MD Opiate(s), Ur Negative Normal NEG [facility] Comment on above: Performed By: #### D AU #### [facility] [address] [place] [address] Dr. [place], [facility] Licensed Life And Health Agent: Juan Luis Cherry MD Oxycodone, Urine Negative Normal NEG [facility] Comment on above: Performed By: #### D AU #### [facility] [address] [place] [address] Dr. [place], [facility] Licensed Life And Health Agent: Juan Luis Cherry MD Phencyclidine, Ur Negative Normal NEG [facility] Comment on above: Performed By: #### D AU #### [facility] [address] [place] [address] Dr. [place], [facility] Licensed Life And Health Agent: Juan Luis Cherry MD Propoxyphene,Urine Negative Normal NEG [facility] Comment on above: Performed By: #### D AU #### [facility] [address] [place] [address] Dr. [place], [facility] Licensed Life And Health Agent: Juan Luis Cherry MD Tricyclic antidepressants Screen Ql (U) Negative Normal [facility] Comment on above: Result Comment: Drug screen results are to be used for medical purposes only. All positive results are unconfirmed. Testing for employment or legal uses should be sent to a reference laboratory for confirmation. Performed By: #### D AU #### [facility] [address] [place] [address] Dr. [place], [facility] Licensed Life And Health Agent: Juan Luis Cherry MD OPERATIVE REPORTon 2 OPERATIVE REPORT [address] [address] OPERATIVE REPORT PATIENT NAME: ALEXIS LAY : 1990 MED REC NO: [id number] ROOM: 0201 ACCOUNT NO: [id number] ADMIT DATE: 11/20/2021 PROVIDER: Rahul Carrizales MD DATE OF PROCEDURE: 11/20/2021 PREOPERATIVE DIAGNOSES: at term, breech presentation. POSTOPERATIVE DIAGNOSES: at term, breech presentation, rosamaria breech presentation confirmed. PROCEDURE PERFORMED: Primary section, low-transverse uterine segment. SURGEON: Rahul Carrizales M.D. ANESTHESIA: Spinal. HEEL BRUSHER: Dali Baez. ESTIMATED BLOOD LOSS: 600 mL. COMPLICATIONS OF THE PROCEDURE: None. FINDINGS: A viable vigorous female infant in rosamaria breech presentation with clear amniotic [...] was extended in a semilunar fashion with foot drill operator's fingers and clear amniotic fluid was noted. Primary Care Md's hand inserted into the uterus. The breech [...] noted to be correct. RAHUL CARRIZALES MD /[id number] Doc#: [id number] CC: Normal [facility] CBC with Auto Differentialon 11-19-2021 Absolute Eos # 0.07 [facility] Absolute Immature Granulocyte 0.16 [facility] Absolute Lymph # 1.12 [facility] Absolute [place] # 0.47 [facility] Basophils (Bld) [#/Vol] 10*3/uL [facility] Basophils/100 WBC (Bld) 0 % 0 - 2 % [facility] Eosinophils/100 WBC (Bld) 1 % 1 - 4 % [facility] Hematocrit (Bld) [Volume fraction] 33.7 % Low 36.3 - 47.1 % [facility] Hemoglobin (Bld) [Mass/Vol] 11.8 g/dL Low 11.9 - 15.1 g/dL [facility] Immature granulocytes/100 WBC (Bld) 2 % High 0 [facility] Interpretation and review of laboratory results Abnormal [facility] Lymphocytes/100 WBC (Bld) 12 % Low 24 - 43 % [facility] MCH (RBC) [Entitic mass] 33.0 pg 25.2 - 33.5 pg [facility] MCHC (RBC) [Mass/Vol] 35.0 g/dL High 28.4 - 34.8 g/dL [facility] MCV (RBC) [Entitic vol] 94.1 fL 82.6 - 102.9 fL [facility] Monocytes/100 WBC (Bld) 5 % 3 - 12 % [facility] NRBC Automated 0.0 0.0 per 100 WBC [facility] Platelet distribution width (Bld) [Ratio] 13.0 % 11.8 - 14.4 % [facility] Platelets (Bld) [#/Vol] See Reflexed IPF Result [facility] RBC (Bld) [#/Vol] 3.58 10*6/uL Low 3.95 - 5.1 1 m/uL [facility] Segmented neutrophils/100 WBC (Bld) 80 % High 36 - 65 % [facility] Segs Absolute 7.26 [facility] WBC (Bld) [#/Vol] 9.1 10*3/uL [facility] CBC with Diffon 11-19-2021 Abs. Basophil <0.03 Normal 0.00-0.20 [facility] Comment on above: Performed By: #### C DP, IPF #### [facility] [address] [place] [address] Dr. [place], [facility] Licensed Life And Health Agent: Juan Luis Cherry MD Abs.Imm.Granulocyte 0.16 k/uL Normal 0.00-0.30 [facility] Comment on above: Performed By: #### C DP, IPF #### [facility] [address] [place] [address] Dr. [place], [facility] Licensed Life And Health Agent: Juan Luis Cherry MD Abs.Neutrophil (Seg) 7.26 k/uL Normal 1.50-8.10 [facility] Comment on above: Performed By: #### C DP, IPF #### [address] [place] [address] Licensed Life And Health Agent: Juan Luis Cherry MD Basophils/100 WBC (Bld) 0 % Normal 0-2 [facility] Comment on above: Performed By: #### C DP, IPF #### [facility] [address] [place], [facility] Licensed Life And Health Agent: Juan Luis Cherry MD Eosinophils (Bld) [#/Vol] 0.07 10*3/uL Normal 0.00-0.44 [facility] Comment on above: Performed By: #### C DP, IPF #### [facility] [address] [place], [facility] Licensed Life And Health Agent: Juan Luis Cherry MD Eosinophils/100 WBC (Bld) 1 % Normal 1-4 [facility] Comment on above: Performed By: #### C DP, IPF #### [address] [place], [place] [address] Licensed Life And Health Agent: Juan Luis Cherry MD Erythrocyte distribution width (RBC) [Ratio] 13.0 % Normal 11.8-14.4 [facility] Comment on above: Performed By: #### C DP, IPF #### [address] [place], [facility] Licensed Life And Health Agent: Juan Luis Cherry MD Hematocrit (Bld) [Volume fraction] 33.7 % Low 36.3-47.1 [facility] Comment on above: Performed By: #### C DP, IPF #### [address] [place], [facility] Licensed Life And Health Agent: Juan Luis Cherry MD Hemoglobin (Bld) [Mass/Vol] 11.8 g/dL Low 11.9-15.1 [facility] Comment on above: Performed By: #### C DP, IPF #### [address] [place], [facility] Licensed Life And Health Agent: Juan Luis Cherry MD Immature granulocytes/100 WBC (Bld) 2 % High 0 [facility] Comment on above: Performed By: #### C DP, IPF #### [facility] [address] [place], [facility] Licensed Life And Health Agent: Juan Luis Cherry MD Lymphocytes (Bld) [#/Vol] 1.12 10*3/uL Normal 1.10-3.70 [facility] Comment on above: Performed By: #### C DP, IPF #### [address] [place] [address] Licensed Life And Health Agent: Juan Luis Cherry MD Lymphocytes/100 WBC (Bld) 12 % Low 24-43 [facility] Comment on above: Performed By: #### C DP, IPF #### [address] [place] [address] Licensed Life And Health Agent: Juan Luis Cherry MD MCH (RBC) [Entitic mass] 33.0 pg Normal 25.2-33.5 [facility] Comment on above: Performed By: #### C DP, IPF #### [address] [place], [place] [phone] Licensed Life And Health Agent: Juan Luis Cherry MD MCHC (RBC) [Mass/Vol] 35.0 g/dL High 28.4-34.8 [facility] Comment on above: Performed By: #### C DP, IPF #### [address] [place] [address] Licensed Life And Health Agent: Juan Luis Cherry MD MCV (RBC) [Entitic vol] 94.1 fL Normal 82.6-102.9 [facility] Comment on above: Performed By: #### C DP, IPF #### [address] [place] [address] Licensed Life And Health Agent: Juan Luis Cherry MD Monocytes (Bld) [#/Vol] 0.47 10*3/uL Normal 0.10-1.20 [facility] Comment on above: Performed By: #### C DP, IPF #### [address] [place], [place] [phone] Licensed Life And Health Agent: Juan Luis Cherry MD Monocytes/100 WBC (Bld) 5 % Normal 3-12 [facility] Comment on above: Performed By: #### C DP, IPF #### [facility] [address] [place], [place] [phone] Licensed Life And Health Agent: Juan Luis Cherry MD Neutrophil (Seg) 80 % High 36-65 [facility] Comment on above: Performed By: #### C DP, IPF #### [facility] [address] [place], [place] [phone] Licensed Life And Health Agent: Juan Luis Cherry MD NRBC Automated 0.0 per 100 WBC Normal 0.0 [facility] Comment on above: Performed By: #### C DP, IPF #### [facility] [address] [place], [place] [phone] Licensed Life And Health Agent: Juan Luis Cherry MD Platelet Count See Reflexed IPF Result Normal 138-453 [facility] Comment on above: Performed By: #### C DP, IPF #### [facility] [address] [place], [place] [phone] Licensed Life And Health Agent: Juan Luis Cherry MD RBC (Bld) [#/Vol] 3.58 10*6/uL Low 3.95-5.11 [facility] Comment on above: Performed By: #### C DP, IPF #### [facility] [address] [place], [place] [id number] Licensed Life And Health Agent: Juan Luis Cherry MD WBC (Bld) [#/Vol] 9.1 10*3/uL Normal 3.5-11.3 [facility] Comment on above: Performed By: #### C DP, IPF #### [facility] [address] [place], [place] [phone] Licensed Life And Health Agent: Juan Luis Cherry MD Immature Platelet Fractionon 11-19-2021 Interpretation and review of laboratory results Abnormal [facility] Platelet, Fluorescence 147 [facility] Platelet, Immature Fraction 10.7 % High 1.1 - 10.3 % [facility] PLT, Immature Fract.on 11-19 Platelet, Fluoresc. 147 k/uL Normal 138-453 [facility] Comment on above: Performed By: #### C DP, IPF #### [facility] [address] [place] [address] Licensed Life And Health Agent: Juan Luis Cherry MD PLT, Immature Fract. 10.7 % High 1.1-10.3 [facility] Comment on above: Performed By: #### C DP, IPF #### [facility] [address] [place] [address] Licensed Life And Health Agent: Juan Luis Cherry MD Type + Screenon 11-19-2021 Type + Screen Sample Expiration 11/22/2021,2359 Arm Band Number [id number] ABO/Rh(D) A NEGATIVE Antibody Screen POSITIVE Antibody Ident Anti-D, Passive Due To RhIG Normal [facility] Comment on above: Performed By: #### T YS #### [facility] [address] [place], [place] [id number] Licensed Life And Health Agent: Juan Luis Cherry MD GBS, External Resulton 11-01 GBS, External Result Negative [facility] Work Phone: [facility] Work Phone: Q - STREP B WITH SUSCEPTon 0 10-27-2021 CULTURE, GROUP B STREP WITH SUSCEPTIBILITY SEE NOTE Normal [facility] Comment on above: Order Comment: [facility] performed at: [facility], [email or web address], [address], [address] [place], [address], Fountain Clerk: Bryce Bird MD [facility] Collection Date/Time: [facility] Results Received Date/Time: [facility] Reported Date/Time: Result Comment: CULT URE, GROUP B STREP WITH SUSCEPTIBILITY Micro Number: [id number] Test Status: Final Specimen Source: Vaginal/rectal Specimen Quality: Adequate Result: No group B Streptococcus isolated Note per CDC guidelines optimal recovery is achieved by swabbing both the lower vagina and rectum (through the anal sphincter). Performed By: #### 1 [id number] #### [facility] [address] [place] [address] Complete Blood Counton 09-02 Erythrocyte distribution width (RBC) [Ratio] 12.6 % Normal 11.0-15.0 [facility] Comment on above: Performed By: #### G GLU, CBC #### [facility] [address] [place], [place] [id number] Hematocrit (Bld) [Volume fraction] 32.5 % Low 35.0-47.0 [facility] Comment on above: Performed By: #### G GLU, CBC #### [facility] [address] [place], [place] [id number] Hemoglobin (Bld) [Mass/Vol] 10.8 g/dL Low 11.6-15.5 [facility] Comment on above: Performed By: #### G GLU, CBC #### [facility] [address] [place], [place] [id number] MCH (RBC) [Entitic mass] 31.5 pg Normal 27.0-33.0 [facility] Comment on above: Performed By: #### G GLU, CBC #### [facility] [address] [place], [place] [id number] MCHC (RBC) [Mass/Vol] 33.2 g/dL Normal 32.0-36.0 [facility] Comment on above: Performed By: #### G GLU, CBC #### [facility] [address] [place], [place] [id number] MCV (RBC) [Entitic vol] 95 fL Normal 80-100 [facility] Comment on above: Performed By: #### G GLU, CBC #### [facility] [address] [place], [place] [id number] Platelet mean volume (Bld) [Entitic vol] 11.30 fL Normal 7.50-12.50 [facility] Specialist Comment on above: Performed By: #### G GLU, CBC #### [facility] [address] [place], [place] [id number] Platelets (Bld) [#/Vol] 146 10*3/uL Normal 140-400 [facility] Comment on above: Performed By: #### G GLU, CBC #### [facility] [address] [place], [place] [id number] RBC (Bld) [#/Vol] 3.43 10*6/uL Low 3.90-5.20 [facility] Specialist Comment on above: Performed By: #### G GLU, CBC #### [facility] [address] [place], [place] [id number] RDW-SD 43.9 fL Normal 37.0-50.0 [facility] Comment on above: Performed By: #### G GLU, CBC #### [facility] [address] [place], [place] [id number] WBC (Bld) [#/Vol] 7.3 10*3/uL Normal 3.8-11.0 [facility] Specialist Comment on above: Performed By: #### G GLU, CBC #### [facility] [address] [place], [place] [id number] Glucose - Gestational Screen on 09-02-2021 Glucose [Mass/Vol] 106 mg/dL Normal <135 [facility] Specialist Comment on above: Result Comment: A va lue of 135 mg/dL or greater indicates the need for a full glucose tolerance test performed in the fasting state to determine if the patient has gestational diabetes. Performed By: #### G GLU, CBC #### [facility] [address] [place], [place] [id number] OB 2nd/3rd Trimesteron OB 2nd/3rd Trimester HISTORY: [...] by Zana Mcdonough on 07/07/2021 1025 Normal [facility] ABO, External Resulton 04-14 ABO, External Result A [employer] Phone: C. Trachomatis, External [facility] 04-14-2021 C. Trachomatis, External Result Negative [employer] Phone: HIV, External ResultOrdered By: Pamela Martinez on 04-14-2021 HIV, External Result Non-Reactive [employer] Verified with Ashlyn Baez CNM [email or web address] Hepatitis B, External Result on 04-14-2021 Hep B, External Result NR [employer] Phone: N. Gonorrhoeae, External Res [facility] 04-14-2021 N. Gonorrhoeae, External Result Negative [employer] Phone: No Panel Informationon 04-14 [employer] Phone: [employer] Phone: RPR, External Labon 04-14-20 21 RPR, External Result NR [employer] Phone: Rh Factor, External Resulton 04-14-2021 Rh Factor, External Result Negative [employer] Phone: Rubella Titer, External Resu lton 04-14-2021 Rubella Titer, External Result Non- Immune [email or web address] Work Phone: Vital Signs Date Time Vital Sign Value Performing Clinician Kacey miranda 11-22-2021 07:22-0400 Body temperature 97.5 [degF] Rahul Carrizales MD Work Phone: [email or web address] 11-22-2021 07:22-0400 Diastolic blood pressure 79 mm[Hg] Rahul Carrizales MD Work Phone: [email or web address] 11-22-2021 07:22-0400 Heart rate 92 /min Rahul Carrizales MD Work Phone: [email or web address] 11-22-2021 07:22-0400 Respiratory rate 18 /min Rahul Carrizales MD Work Phone: [email or web address] 11-22-2021 07:22-0400 Systolic blood pressure 139 mm[Hg] Rahul Carrizales MD Work Phone: [email or web address] 11-20-2021 11:08-0400 SaO2% (BldA) [Mass fraction] 98 % Rahul Carrizales MD Work Phone: [facility] [employer] 11-20-2021 06:02-0400 Body height 170.2 cm Rahul Carrizales MD Work Phone: [email or web address] 11-20-2021 06:02-0400 Body mass index (BMI) [Ratio] 30.87 kg/m2 Rahul Carrizales MD Work Phone: [email or web address] 11-20-2021 06:02-0400 Body weight 89.4 kg Rahul Carrizales MD Work Phone: [email or web address] Encounters Encounter Date Encounter Type Care Provider Facility Start: 07-01-2023 Clinisync Result Encounter Dali Baez CNM Work Phone: [facility] Unsolicited Start: 07-01-2023 Clinisync Result Encounter Dali Baez CNM Work Phone: [facility] External Department Unsolicited Start: 06-27-2023 End: 06-28-2023 ambulatory DALI L FLORO Not Available Start: 06-23-2023 End: 06-24-2023 ambulatory DALI L [...] End: 11-22-2021 Evaluation and management of inpatient RAHUL CARRIZALES [facility] Start: 11-20-2021 End: 11-22-2021 Evaluation and management of inpatient Rahul Carrizales MD Work Phone: [facility] Labor and Delivery Comment on above: Delivery by section for breech presentation (Primary Dx) Start: 11-19-2021 End: 11-19-2021 ambulatory RAHUL CARRIZALES [facility] Start: 11-19-2021 End: 11-19-2021 Subsequent hospital visit by physician Rahul Carrizales MD Work Phone: [facility] Labor and Delivery Procedures Date Procedure Procedure Detail Performing Clinician Start: 07-01-2023 ALL CBC WITH AUTO DIFF Dali L Floro CNM Work Phone: Start: 11-21-2021 Blood count hemoglobin Dali Floro RN MANAGED CARE - CNM Work Phone: Start: 11-20-2021 End: 11-20-2021 delivery only Rahul Dominguez Work Phone: Start: 11-20-2021 Drug tst prsmv instr mnt chem analyzers pr date Rahul Carrizales MD Work Phone: Start: 11-19-2021 Blood count complete auto&auto difrntl wbc Rahul Carrizales MD Work Phone: Start: 11-19-2021 IMMATURE PLATELET FRACTION Rahul Carrizales MD Work Phone: Start: 11-01-2021 GBS, EXTERNAL RESULT Jefferson Warren MD Start: 04-14-2021 ABO, EXTERNAL RESULT Jefferson Warren MD Start: 04-14-2021 C. TRACHOMATIS, EXTE RNAL RESULT Historical Provider Start: 04-14-2021 HEPATITIS B, EXTERNA L RESULT Historical Provider Start: 04-14-2021 HIV, EXTERNAL RESULT Jefferson mccray Provider Start: 04-14-2021 N. GONORRHOEAE, EXTE RNAL RESULT Historical Provider Start: 04-14-2021 RH FACTOR, EXTERNAL RESULT Historical Provider Start: 04-14-2021 RPR, EXTERNAL RESULT Wa shazia Provider Start: 04-14-2021 RUBELLA TITER, EXTER NAL RESULT Historical Provider Plan of Treatment Date Care Activity Detail Author Start: 02-09-2027 Screening for malign ant neoplasm of cervix [facility] Start: 07-07-2023 End: 07-07-2023 ambulatory 07/07/2023 9:30 AM EST Visit [facility] [address] [place] [id number] Dali Baez, RAGHAVENDRAM [address] [place], [place] [id number] [facility] Start: 01-28-2023 Influenza vaccination Influenza Vacc ine (#1) [facility] Start: 01-28-2022 Influenza vaccination Flu vacc ine (Season Ended) [facility] Start: 11-20-2021 End: 11-20-2021 Admission to same day surgery center 11/20/2021 Surgery Obstetrics and Gynecology Rahul Carrizales MD [address] [place] [address] [address] [place] [address] SECTION [facility] Labor and Delivery Comment on above: SECTION Start: 11-20-2021 End: 11-20-2021 delivery only SECTION Breech presentation, single or unspecified fetus 11/20/2021 7:30 AM EDT [facility] Start: 11-20-2021 Subsequent hospital visit by physician 11/20/2021 Hospital Encounter Obstetrics and Gynecology Rahul Carrizales MD [address] [place] [address] [address] [place] [address] [facility] Labor and Delivery Start: 2021 Screening for malign ant neoplasm of cervix [facility] Start: 01-30-2012 Screening for malign ant neoplasm of cervix Pap smear [facility] Start: 2010 DTaP/Tdap/Td vaccine (1 - Tdap) DTaP/Tdap/Td vaccine (1 - Tdap) [facility] Start: 2009 Hepatitis C screening Hepatitis C sc reen [facility] Start: 2006 HIV screening HIV screen [facility] Start: 2003 Depression Screen Depression Screen [facility] Start: 01-30-1996 COVID-19 Vaccine (1) COVID-19 Vaccin e (1) [facility] Start: 01-30-1992 Varicella vaccine (1 of 2 - 2-dose childhood series) Varicella vaccine (1 of 2 - 2-dose childhood series) [email or web address] Oxygen therapy [[facility] Data Set] Initiate Oxygen Therapy Protocol Respiratory Care Routine As Needed until discontinued starting 11/20/2021 [employer] Phone: Comment on above: As Needed until disc ontinued starting 11/20/2021 End: 11-20-2021 RHOGAM RHOGAM Blood Bank Routine One Time for 1 Occurrences starting 11/20/2021 until 11/20/2021 [employer] Phone: Comment on above: One Time for 1 Occur rences starting 11/20/2021 until 11/20/2021 Spirometry panel Incentive myles metry Respiratory Care Routine Every 2hr while awake until discontinued starting 11/20/2021 [employer] Phone: Comment on above: Every 2hr while awak e until discontinued starting 11/20/2021 End: 11-19-2021 TYPE AND SCREEN [email or web address] Work Phone: Comment on above: One Time for 1 Occur rences starting 11/19/2021 until 11/19/2021 Immunizations Immunization Date Immunization Notes Care Provider [facility] 11-20-2021 diphtheria, tetanus toxoids and acellular pertussis vaccine, unspecified formulation Rahul Carrizales MD Work Phone: [email or web address] Work Phone: 11-20-2021 measles, mumps and rubella virus vaccine Rahul Carrizales MD Work Phone: [email or web address] Work Phone: NEGATED: Highlighted row has not occurred!05-29-2023 RHO(D) immune globulin - IM Dali Baez CN Work Phone: [facility] Work Phone: Comment on above: Deferred: Other Payers Date Payer Category Payer Unknown [employer] [id number] 2022-Present [address] [place] [address] [id number] 2022 Unknown [id number] 2021 Unknown [id number] 1991 Unknown [id number] 2.16.840.1.120202.3.579.2.173 1991 Unknown [id number] 2.16.840.1.535110.3.579.2.1259 1991 Unknown [id number] 2.16.840.1.847950.3.579.2.1259 1991 Unknown [id number] 2.16.840.1.617399.3.579.2.1259 1991 Unknown [id number] 2.16.840.1.885612.3.579.2.1259 1991 Unknown [id number] 2.16.840.1.158882.3.579.2.1259 1991 Unknown [id number] 2.16.840.1.801166.3.579.2.1259 1991 Unknown [id number] 2.16.840.1.490203.3.579.2.1259 1991 Unknown [id number] 2.16.840.1.232924.3.579.2.1259 1991 Unknown [id number] 2.16.840.1.174020.3.579.2.1259 1991 Unknown [id number] 2.16.840.1.471215.3.579.2.9 1991 Unknown [id number] 2.16.840.1.181885.3.579.2.1259 1991 Unknown [id number] 2.16.840.1.242016.3.579.2.1259 1991 Unknown [id number] 2.16.840.1.926232.3.579.2.9 1991 Unknown [id number] 2.16.840.1.200094.3.579.2.9 1991 Unknown [id number] 2.16.840.1.097383.3.579.2.1258 1991 Unknown [id number] 2.16.840.1.940952.3.579.2.9 1991 Unknown [id number] 2.16.840.1.332803.3.579.2.9 Social History Date Type Detail Facility Tobacco smoking stat [facility] Tobacco smoking consumption unknown [employer] Phone: Start: 1990 Sex Assigned At Not on file [employer] Phone: Start: 11-20-2021 End: 11-25-2022 Tobacco smoking status [facility] Never smoked tobacco [employer] Phone: Start: 11-20-2021 End: 11-25-2022 Tobacco use and exposure Smokeless tobacco non-user [employer] Phone: Start: 11-20-2021 Alcohol intake Ex-drinker (finding) [employer] Phone: Start: 11-20-2021 History SDOH Alcohol Frequency 1 [employer] Phone: Start: 11-25-2022 Alcohol intake Current drinker of alcohol (finding) [facility] Start: 11-25-2022 History of Social function [facility] Start: 11-25-2022 Tobacco use panel [facility] Start: 11-25-2022 Education 21 [facility] Start: 11-25-2022 Alcohol Comment Alcohol: 1-2 drinks/monthly or less . Caffeine: 1-2 cups/day [facility] Start: 10-13-2022 [facility] Start: 1990 Sex Assigned At Female [facility] Start: 08-11-2022 Gender identity Identifies as female gender (finding) [facility] Start: 11-05-2022 Sexual orientation Heterosexual (finding) [facility] History of Present illness Narrative 11-23-2021 Nohemy Ch RN - 11/23/2021 11:47 AM Bella Ch RN - 11/23/2021 11:35 AM EDTARIK Childress CNM - 11/23/2021 9:35 AM Oumar Cotter RN [...] Doing well postoperatively. Plan: Continue current care. X Ray Service Engineer Note: I first assisted Dr Carrizales with [...] labs drawn, and patient hooked up to EFM. Admission database completed. All questions were answered @ this time. Paperwork completed. Will continue to monitor. documented in this encounter [employer] Phone: Hospital course Narrative 11-23-2021 Dali Baez APRN - [place] - 11/23/2021 9:44 AM EDT Note Date & Type Note Facility 11-23-2021 Hospital course Narrative Obstetrical Discharge Form Gestational Age:40w0d Antepartum complications: h/o bilateral choroid plexus cyst-resolved Date of Delivery: 11-20-21 Type of Delivery: for breech Delivered By: Dr Rahul Carrizales Baby: Information for the patient's : Herbert Baby Girl [[id number]] Anesthesia: Spinal Intrapartum complications: None Feeding method: breast Blood type: A NEGATIVE Rubella: No results found for: RUBG T. Pallidium, IGG: No results found for: TREPG Hepatitis B Surface Antigen: No results found for: HEPBSAG HIV: No results found for: [id number] complications: none Discharge Medication: Medication List START [...] Your Medications These medications were sent to [facility] [id number] [facility] [address] [facility] [phone] - F [phone] [address] [facility] [id number] docusate sodium 100 MG capsule ibuprofen 800 MG tablet You can get these medications from any pharmacy Bring a paper prescription for each of these medications oxyCODONE HCl 10 MG immediate release tablet Discharge Date: 11/23/2021 Discharged to home with Plan: Follow up in 1 week(s) for incision check, 1 week pp check Patient has appointment made. documented in this encounter [employer] Phone: Hospital Discharge instructions 11-21-2021 Instructions Note Date & Type Note Facility 11-21-2021 Hospital Discharg e instructions Nettie Edwards RN - 11/21/2021 Follow-up with your OB doctor as specified. [facility] Department phone: Talita Baez, MSN, RN MANAGED CARE, CNM [place] [id number] [facility] [address] DIET Eat a well balanced diet focusing on foods high in fiber and protein. Drink plenty of fluids especially water. To avoid constipation you may take a mild stool softener as recommended by your doctor or simplex printer installer. ACTIVITY Gradually increase your activity. Resume exercise regimen only after advice by your doctor or simplex printer installer. Avoid lifting anything heavier than a gallon of milk for SIX weeks. Avoid driving until your doctor or simplex printer installer has given their approval. Rise slowly from [...] of harming yourself or your . If will not stop crying, contact another adult for help or place in their crib on their back and take a break. NEVER shake your . BLEEDING Vaginal bleeding will decrease in amount [...] medications as recommended by your doctor or simplex printer installer for pain If you develop a warm, red, tender area on your breast or develop a fever contact your OB provider. For moms: If you become engorged, feeding may be more difficult or painful for 1-2 days. You may find it helpful to hand express some milk so that the infant can latch on more easily. While , continue to take your vitamins as directed by your doctor or simplex printer installer. Refer to the booklet in the folder/binder for more information. If you feel you need more assistance or have questions, please call Janett Alcazar IBCLC, consultant intern, at or the OB department to schedule [...] your calf. documented in this encounter [employer] Work Phone: Clinical Note 09-15-2021 Note Date [...] Posterior fundal Grade II Weight (g) by Buoshkfdbr88.4 % * These measurements result in an [...] signed by Zana Mcdonough on 09/15/2021 0958 [facility] Auto [employer]isher Evaluation note Note Date & Type Note Facility Evaluation note Diagnosis Delivery by section for breech presentation- Primary Third trimester documented in this encounter [employer] Phone: Reason for visit Narrative Auth/Cert Note Date & Type Note Facility Reason for visit Narrative Specialty Diagnoses / Procedures Referred By Contac t Referred To Contact Diagnoses Breech presentation, single or unspecified fetus Delivery by section for breech presentation Third trimester 40 weeks , Breech, Primary . Talita Floro to assistant sales manager. Procedures [place] DELIVERY ONLY SECTION Rahul Carrizales MD [address] [place] [address] [facility] [address] [place] [address] [employer] [address] [place] [address] Referral ID Status Reason Start Date Expiration Date Visits Re quested Visits Authorized [id number] 1 1 [employer] Phone: Summary Purpose Family History No Family [...] section and content) DATE CREATED AUTHOR 10/31/2021 [facility] Me dical Specialist DATE CREATED AUTHOR AUTHOR'S ORGANIZ ATION 11/23/2021 Taylor Garrison pitdaniel DATE CREATED AUTHOR AUTHOR'S ORGANIZ ATION 07/02/2023 [facility] dical Specialists EPIC Ordered Prescriptions (unrec [...] 50 mL IVPB (COMPLETED) 900 mg, IntraVENous, SUPERVISOR FUR FLOOR WORKER TO O.R., 1 dose, On Tue11/20/21 at 0615, Antimicrobial Indications: Surgical Prophylaxis, Administer within 1 hour prior to incision., Labor and Delivery (Signed and Held) 0634 (New Bag - Provider: Tenisha Chance RN)0636 (Rate/Dose Verify - Provider: Felicia Cotter RN)0715 (Stopped - Provider: Felicia Cotter RN)0717 (Stopped - Provider: Felicia Cotter, ANABEL) docusate sodium (COLACE) capsule 100 mg 100 [...] Chance RN) 2042 (Given - Provider: Abby Garcia RN) 903 (Given - Provider: Felicia Cotter RN) famotidine (PEPCID) 20 mg in sodium chloride (PF) 10 mL injection (COMPLETED) 20 mg, IntraVENous, ONCE, 1 dose, On Tue11/20/21 at 0600, Give 60 minutes before surgery., Labor and Delivery 0711 (Given - Provider: Felicia Cotter RN) gentamicin (GARAMYCIN) 308 mg in dextrose 5 % 250 mL IVPB (COMPLETED) 308 mg (5 mg/kg 61.6 kg [place] weight), IntraVENous, SUPERVISOR FUR FLOOR WORKER TO O.R., 1 dose, On Tue11/20/21 at 0615, Antimicrobial Indications: Surgical Prophylaxis, Administer within 1 hour prior to incision., Labor and Delivery (Signed and Held) 0717 (New Bag - Provider: Felicia Cotter RN)0757 (Canceled Entry - Provider: Amanda Espinosa APRN - FOOD AND DRUG INSPECTOR)0959 (Stopped - Provider: Felicia Cotter RN) ibuprofen [...] refused at this time, waiting for food) 09 (Given - Provider: Felicia Cotter RN) 09 (Given - Provider: Felicia Cotter RN) rho(D) [...] Chance RN - Reason: IV Fluid Infusing) ezhfdaw-glhjax-xrcbp pertussis (BOOSTRIX) injection 0.5 mL 0.5 mL, IntraMUSCular, PRIOR TO DISCHARGE, 1 dose, Starting on Tue11/20/21 at 0901, Until Discontinued, If not previously administered during at 27-36 weeks as recommended by CDC., Continuous Medication Order 11/20/2021 11/21/2021 11/22/2021 lactated ringers infusion IntraVENous, at 125 mL/hr, CONTINUOUS, Starting on Tue11/20/21 at 0930, 1049 (New Bag - Provider: Felicia Cotter, ANABEL)1053 (Rate/Dose Verify - Provider: Felicia Cotter RN)1100 (Rate/Dose Verify - Provider: Felicia Cotter RN)1645 (Rate/Dose Verify - Provider: Felicia Cotter RN)1845 (Rate/Dose Verify - Provider: Felicia Cotter RN)1845 (New Bag - Provider: Felicia Cotter RN) 0102 (New Bag - Provider: Tenisha Chance RN)1024 (Stopped - Provider: Hodan Leal RN) oxytocin (PITOCIN) 30 units in 500 mL infusion 87.3 aicha-units/min (87.3 mL/hr), IntraVENous, CONTINUOUS, Starting on Tue11/20/21 at 1145, Until Discontinued, Run at 87.3mL/hr for 2nd bag 1116 (New Bag - Provider: Hodan Leal, ANABEL)1655 (Stopped - Provider: Felicia Cotter, ANABEL) PRN Medication Order 11/20/2021 11/21/2021 11/22/2021 0.9 [...] 1214 (Given - Provider: Felicia Cotter RN) 121 (Given - Provider: Felicia Cotter RN)2200 (Given - Provider: Abby Garcia, ANABEL) 102 (Given - Provider: Felicia Cotter RN)2128 (Given [...] units in 167ml)., Multiphase Phase of Care 0809 (Given by Other Clinician - Provider: Felicia [...] Care Teams (unrecognized sec tion and content) [employer] Relationship Specialty Start Date End Date Rashida Hernandez MD [address] [place], [place] [id number] PCP - General 11/19/21 [employer] Relationship Specialty Start Date End Date Rashida Hernandez MD [address] [place], [place] [id number] PCP - General Family Medicine 10/05/22 Dali Baez CNM [address] [place] [address] Obstetrics and Gynecology 11/25/22 FOR RECORDS PERTAINING TO PATIENTS WHO ARE [...] BE BASED ON THE PRIMARY CLINICAL RECORDS. [facility] [employer] [facility]. provides no warranty or guarantee of the accuracy or completeness of information in this document.
--- NOTE | 2023-07-05 10:46 | PC.NURSE ---
and Kip arrive for follow up appointment. Father also attends. states is tired, ut feeling well. Taking Motrin 800mg every 6-8 hours for pain control after C/S. Denies any complaints. VVS and assessment WNL. Incision open to air, steri-strips intact. Noted to have 1 cm tape blister at right lower incision line as well as at left edge. Several areas of tape residue noted and pt instructed on how to remove with oil base (coconut oil,baby oil) Incision line without redness or drainage. +1 edema of ankles noted, pulses present. 6 day old Kip awake and looking around. Parents report fairly easy transition at home with 19mo daughter and NB. VSS and assessment WNL. Slight jaundice tone to skin color, 11.2 per transcutaneous meter. Parents report multiple wets and yellow seedy stools. No concerns noted. Baby to breast, mom noted to have excoriation on nipples bilaterally. She latches baby independently, noted shallow latch in cradle position. offers cross cradle and deeper latch education. able to demo successfully, Kip has deeper latch and feeding more comfortable for mom. No further concerns noted at this time. Aware of [facility] group and to call as needed for support.
[2023-07-05 10:51] VITALS: BP 127/85; PULSE 100; RESP 18; TEMP 36.8; O2SAT 98
== END 2023-07-05 10:05 | disposition home or self-care (01) ==
LOC: FBCO 08:12
PROVIDERS: PCP Family Medicine; Visit Provider Midwife
DX: Z39.1 Encounter for care and examination of lactating mother (principal)

== ENCOUNTER 2024-07-20 08:00 | Outpatient (RCR) | payer OTHER, SELFPAY | END 2024-07-21 10:38 | disposition home or self-care (01) | LOC: PT 08:00 | PROVIDERS: PCP Family Medicine; Visit Provider Nurse Practitioner Family | DX: G89.18 Other acute postprocedural pain (principal); Z98.891 History of uterine scar from previous surgery | CPT/HCPCS: 97110; 97161 ==